=== PATIENT | female | born 1945 | race Caucasian/White ===

== ENCOUNTER 2018-05-28 15:11 | Inpatient (IN) ==
[2018-05-28] MEDS ORDERED: ROCEPHIN VIAL 1 GRAM IVP SCH (16:19)
[2018-05-28] MEDS ORDERED: NS 1000 ML 1,000 ML IV ONE (16:19)
[2018-05-28 17:31] LABS: BASOPHILS % (AUTO) 0.2 % (0.2-1.0); EOSINOPHILS # (AUTO) 0.1 x10^3/uL (0.0-0.2); EOSINOPHILS % (AUTO) 0.4 % (0.9-2.9); HEMATOCRIT 33.6 % (36.0-47.0); HEMOGLOBIN 11.1 g/dL (12.0-16.0); LYMPHOCYTES % (AUTO) 14.5 % (21.0-51.0); MEAN CORPUSCULAR HEMOGLOBIN 29.2 pg (27.0-34.0); MEAN CORPUSCULAR HGB CONC 33.2 g/dL (33.0-35.0); MEAN CORPUSCULAR VOLUME 88.1 fL (80.0-100.0); MEAN PLATELET VOLUME 8.6 fL (7.4-11.0); MONOCYTES # (AUTO) 0.9 x10^3/uL (0.3-0.8); MONOCYTES % (AUTO) 6.1 % (0.0-13.0); NEUTROPHILS % (AUTO) 78.8 % (42.0-75.0); PLATELET COUNT 114 X10^3/uL (150.0-450.0); RED BLOOD COUNT 3.81 X10^6/uL (3.5-5.4); RED CELL DISTRIBUTION WIDTH 15.1 % (11.6-16.5)
[2018-05-28 17:36] LABS: ALANINE AMINOTRANSFERASE 18 Units/L (12-78); ALBUMIN 3.7 g/dL (3.4-5.0); ALKALINE PHOSPHATASE 51 Units/L (46-116); ASPARTATE AMINO TRANSFERASE 15 Units/L (15-37); BLOOD UREA NITROGEN 50 mg/dL (7-18); CALCIUM 9.1 mg/dL (8.5-10.1); CARBON DIOXIDE 32.6 mmol/L (21-32); CHLORIDE 101 mmol/L (98-107); COR NA(FOR HYPERGLY) 141 mmol/L (136-145); CREATININE 1.98 mg/dL (0.55-1.02); MAGNESIUM 1.3 mg/dL (1.7-2.9); SODIUM 140 mmol/L (136-145); TOTAL PROTEIN 7.8 g/dL (6.4-8.2); eGFR NON BLACK RACES 26 (>60)
[2018-05-28 17:48] LABS: ABG BASE EXCESS 6.6 mmol/L (-2.0-2.0)
[2018-05-28 17:50] LABS: ABG HCO3 32.8 mmol/L (22-26)
[2018-05-28 17:51] LABS: ABG ALLEN TEST POS
[2018-05-28] MEDS ORDERED: MAGNESIUM SULFATE 1 GRAM/100 mL PREMIX 1 G/100 ML BAG IV PRN (18:21)
[2018-05-28] MEDS: MAGNESIUM SULFATE 1 GRAM/100 mL PREMIX 1 GM/100 ML BAG IV PRN ×3 (19:04→22:56)
[2018-05-28] MEDS: CIPRO IV 200 MG PREMIX* 200 MG/100 ML BAG IV SCH (21:48)
[2018-05-29] MEDS: MAGNESIUM SULFATE 1 GRAM/100 mL PREMIX 1 GM/100 ML BAG IV PRN (00:15)
[2018-05-29 01:42] LABS: BILIRUBIN,URINE NEGATIVE (NEGATIVE); BLOOD/HEMOGLOBIN,URINE 1+ (NEGATIVE); GLUCOSE, URINE NEGATIVE (NEGATIVE); KETONES,URINE NEGATIVE (NEGATIVE); LEUKOCYTE ESTERASE ,URINE 2+ (NEGATIVE); NITRITES,URINE NEGATIVE (NEGATIVE); PROTEIN,URINE NEGATIVE (NEGATIVE); UROBILINOGEN,URINE NORMAL (NORMAL)
[2018-05-29 02:00] LABS: APPEARANCE,URINE CLEAR (CLEAR); BACTERIA,URINE TRACE /HPF (NEGATIVE); COLOR,URINE YELLOW (YELLOW); SQUAMOUS EPITHELIAL CELL,UR MODERATE /HPF (NEGATIVE)
[2018-05-29 05:51] VITALS: BMI 30.1
[2018-05-29 06:10] LABS: BASOPHILS % (AUTO) 0.2 % (0.2-1.0); EOSINOPHILS # (AUTO) 0.1 x10^3/uL (0.0-0.2); EOSINOPHILS % (AUTO) 0.9 % (0.9-2.9); HEMATOCRIT 28.7 % (36.0-47.0); HEMOGLOBIN 9.5 g/dL (12.0-16.0); LYMPHOCYTES # (AUTO) 1.8 X10^3/uL (1.3-2.9); LYMPHOCYTES % (AUTO) 15.9 % (21.0-51.0); MEAN CORPUSCULAR HEMOGLOBIN 29.2 pg (27.0-34.0); MEAN CORPUSCULAR HGB CONC 33.3 g/dL (33.0-35.0); MEAN CORPUSCULAR VOLUME 87.6 fL (80.0-100.0); MEAN PLATELET VOLUME 8.8 fL (7.4-11.0); MONOCYTES # (AUTO) 0.8 x10^3/uL (0.3-0.8); MONOCYTES % (AUTO) 7.3 % (0.0-13.0); NEUTROPHILS # (AUTO) 8.6 x10^3/uL (2.2-4.8); NEUTROPHILS % (AUTO) 75.7 % (42.0-75.0); PLATELET COUNT 104 X10^3/uL (150.0-450.0); RED BLOOD COUNT 3.27 X10^6/uL (3.5-5.4); RED CELL DISTRIBUTION WIDTH 15.1 % (11.6-16.5); WHITE BLOOD COUNT 11.4 X10^3/uL (3.6-10.0)
[2018-05-29 06:34] LABS: ALBUMIN 3.1 g/dL (3.4-5.0); CARBON DIOXIDE 31.8 mmol/L (21-32); COR CA(FOR HYPOALB) 9.7 mg/dL (8.5-10.1); CREATININE 1.66 mg/dL (0.55-1.02); TOTAL PROTEIN 6.7 g/dL (6.4-8.2)
--- NOTE | 2018-05-29 07:24 | CT ---
CT HEAD WITHOUT CONTRAST CLINICAL HISTORY: 72-year-old female with altered mental status COMPARISON: None. TECHNIQUE: Multiple, non-contrasted axial CT images were obtained from the skull base to the cranial vertex. Coronal and sagittal reformats were performed. FINDINGS: There are no abnormal intra- or extra-axial fluid collections, midline shift, or mass effect. Abdul-white differentiation is normal. Global cortical involutional changes are present that are advanced for the patient's stated age. The ventricular system is enlarged but commensurate with the degree of sulcal prominence. Chronic lacunar infarctions bilateral basal ganglia with chronic punctate infarctions bilateral segundo radiata and centrum semiovale. Severe periventricular and supraventricular white matter hypodensity is present that is nonspecific in appearance, but most likely to represent microvascular ischemic changes. Atherosclerotic vascular calcification is present within the carotid siphons and distal vertebral arteries. Trace mucosal thickening left frontal sinus with significant fluid within the right frontal sinus extending into the right frontal recess. Remaining paranasal sinuses, mastoid air cells and tympanic cavities are clear. IMPRESSION: 1. No definite evidence of an acute intracranial process. If clinical concern persists for acute stroke and it would alter patient management, consider MRI/MRA brain. 2. Significant fluid level right frontal sinus extending into the frontal recess, correlate clinically for acute sinusitis. 3. Severe microvascular white matter ischemic changes, with associated volume loss. Reported By:
--- NOTE | 2018-05-29 07:25 | RAD ---
HISTORY: 72-year-old female with altered mental status. Study: Frontal view of the chest. Comparison: None. Findings: Status post median sternotomy. Right axillary surgical clips. The trachea is midline. The cardiac silhouette is unremarkable. Prominent interstitium and perihilar lung markings without effusion, pneumothorax or large consolidation. Soft tissues are unremarkable. Osseous structures are unremarkable. IMPRESSION: 1. No acute cardiopulmonary disease with findings suggesting COPD. Reported By:
[2018-05-29] MEDS: NS 1000 ML 1,000 ML IV SCH ×3 (07:58→21:41)
[2018-05-29] MEDS: CIPRO IV 200 MG PREMIX* 200 MG/100 ML BAG IV SCH (07:59)
[2018-05-29] MEDS ORDERED: ZOFRAN TAB 4 MG PO PRN (18:04)
[2018-05-29] MEDS ORDERED: PATIENT'S HOME MEDICATION (Ferrous Sulfate [Ferrous Sulfate] 325 MG) PO SCH (18:15)
--- NOTE | 2018-05-29 18:15 | DR.H&P ---
H&P - History & Physical for Day of: H&P Date: 05/28/18 - Chief Complaint Chief Complaint: AMS - History of Present Illness History of Present Illness: 72 WF PATIENT OF [facility] WITH BRONCHITIS FOR SEVERAL WEEKS AND AMS. PT HAS PMH OF HTN, OA, GERD, COPD.NURSING STAFF REPORTS PT HAD DECREASED AWARENESS, INCREASED LETHARGIC. PT ADMITTED FOR TREATMENT OF ACUTE ILNNESS, R/O SEPSIS, UTI. - Past Medical History Past Medical History: Arthritis, Depression, Hypertension - Past Surgical History Surgical History: CABG/Valve Surgery, Mastectomy - Family History Family Medical History: Coronary Artery Disease, Hypertension - Social History Does patient currently use any type of tobacco product: No Have you used tobacco products in the last 12 months: No Type of Tobacco Use: None Does any household member use tobacco: No Alcohol Use: None Drug Use: None - Medications Home Medications: aspirin Allergy (Verified 05/28/18 17:20) codeine Allergy (Verified 05/28/18 17:20) Iodinated Contrast- Oral and IV Dye Allergy (Verified 05/28/18 18:07) Penicillins Allergy (Verified 05/28/18 17:20) Sulfa (Sulfonamide Antibiotics) Allergy (Verified 05/28/18 17:20) CONTINUE taking the following medications acetaminophen 650 mg PO Q6H PRN 05/28/18 [History] alprazolam [Xanax] 0.5 mg PO BID 05/28/18 [History] exemestane 25 mg PO QDAY 05/28/18 [History] ferrous sulfate 325 mg PO DAILY 05/28/18 [History] furosemide 20 mg PO QDAY 05/28/18 [History] gabapentin 300 mg PO QHS 05/28/18 [History] guaifenesin 600 mg PO Q12H 05/28/18 [History] hydrocodone-acetaminophen 1 tab PO Q6H PRN 05/28/18 [History] ipratropium-albuterol 1 vial INHALATION Q6H PRN 05/28/18 [History] levothyroxine 125 mcg PO QDAY 05/28/18 [History] metformin 1,000 mg PO BID 05/28/18 [History] metoprolol tartrate 100 mg PO BID 05/28/18 [History] ondansetron HCl [Zofran] 4 mg PO Q6H PRN 05/28/18 [History] pantoprazole [Protonix] 40 mg PO QDAY 05/28/18 [History] rivaroxaban [Xarelto] 15 mg PO HS 05/28/18 [History] sertraline 150 mg PO HS 05/28/18 [History] simvastatin 80 mg PO QHS 05/28/18 [History] triamterene-hydrochlorothiazid 1 cap PO QDAY 05/28/18 [History] - Review of Systems Constitutional: Weakness Eyes: No Symptoms Reported ENT: No Symptoms Reported Respiratory: Cough, Wheezing Cardiovascular: No Symptoms Reported Gastrointestinal: Nausea Genitourinary: No Symptoms Reported Musculoskeletal: No Symptoms Reported Skin: No Symptoms Reported Neurological: Weakness, Confusion - Physical Exam Vital Signs: Temperature 99.1 F Pulse Rate [Left Brachial] 84 Pulse Rate 74 Respiratory Rate 20 Blood Pressure [Left Arm] 129/58 O2 Sat by Pulse Oximetry 97 Oriented: Normal Eyes: Normal Nose: Discharge Throat: Dry Respiratory: RLL Diminished, LLL Diminished Cardiovascular: Normal : Normal Auscultation: Bowel Sounds: Normal Palpation: Normal Tenderness: Normal Skin: Decreased Turgur Musculoskeletal: Back:Lumbar Psychiatric: Anxiety Affect: Anxious Speech Pattern: Delayed - Assessment/Plan (1) Altered mental status Status: Acute (2) UTI (urinary tract infection) Status: Acute (3) Acute bronchitis Status: Acute - Allergies Allergies/Adverse Reactions: Allergies Allergy/AdvReac Type Severity Reaction Status Date / Time aspirin Allergy Verified 05/28/18 17:20 codeine Allergy Verified 05/28/18 17:20 Iodinated Contrast- Oral and Allergy Verified 05/28/18 18:07 IV Dye Penicillins Allergy Verified 05/28/18 17:20 Sulfa (Sulfonamide Allergy Verified 05/28/18 17:20 Antibiotics)
[2018-05-29] MEDS ORDERED: MUCINEX EXPECTORANT PO SCH (19:00)
[2018-05-29] MEDS: PULMICORT NEB TX 0.5 MG NEB SCH (21:08)
[2018-05-29] MEDS: DUONEB 0.5 MG/3 MG NEB SCH (21:08)
[2018-05-29] MEDS ORDERED: GLUCOPHAGE ONE (21:32)
[2018-05-29] MEDS ORDERED: ZOLOFT PO ONE (21:32)
[2018-05-29] MEDS: ROCEPHIN VIAL 1 GRAM IVP SCH (21:37)
[2018-05-29] MEDS: ZOCOR TAB 40 MG PO SCH (21:38)
[2018-05-29] MEDS: NORCO 10/325 TAB PO PRN (21:38)
[2018-05-29] MEDS: GLUCOPHAGE PO SCH (21:39)
[2018-05-29] MEDS: LOPRESSOR TAB 50 MG PO SCH (21:39)
[2018-05-29] MEDS: ZOLOFT PO SCH (21:40)
[2018-05-29] MEDS: MUCINEX EXPECTORANT PO SCH (21:41)
[2018-05-29] MEDS: XANAX PO SCH (21:41)
[2018-05-29] MEDS: NEURONTIN CAP 300 MG PO SCH (21:41)
[2018-05-29] MEDS: XARELTO PO SCH (21:41)
[2018-05-29] MEDS ORDERED: HEMOCYTE-PLUS PO ONE (21:52)
[2018-05-29] MEDS: LASIX PO SCH (21:58)
[2018-05-29] MEDS ORDERED: HEMOCYTE-PLUS PO SCH (22:00)
[2018-05-30] MEDS: DUONEB 0.5 MG/3 MG NEB SCH ×5 (05:51→21:10)
[2018-05-30] MEDS: DUONEB 0.5 MG/3 MG IN SCH (06:09)
[2018-05-30 06:25] LABS: BASOPHILS % (AUTO) 0.3 % (0.2-1.0); EOSINOPHILS # (AUTO) 0.1 x10^3/uL (0.0-0.2); EOSINOPHILS % (AUTO) 1.7 % (0.9-2.9); HEMOGLOBIN 9.9 g/dL (12.0-16.0); LYMPHOCYTES # (AUTO) 1.2 X10^3/uL (1.3-2.9); LYMPHOCYTES % (AUTO) 15.7 % (21.0-51.0); MEAN CORPUSCULAR HEMOGLOBIN 29.8 pg (27.0-34.0); MEAN CORPUSCULAR HGB CONC 34.1 g/dL (33.0-35.0); MEAN CORPUSCULAR VOLUME 87.4 fL (80.0-100.0); MEAN PLATELET VOLUME 9.1 fL (7.4-11.0); MONOCYTES # (AUTO) 0.6 x10^3/uL (0.3-0.8); MONOCYTES % (AUTO) 7.8 % (0.0-13.0); NEUTROPHILS # (AUTO) 5.7 x10^3/uL (2.2-4.8); NEUTROPHILS % (AUTO) 74.5 % (42.0-75.0); PLATELET COUNT 104 X10^3/uL (150.0-450.0); RED BLOOD COUNT 3.32 X10^6/uL (3.5-5.4); RED CELL DISTRIBUTION WIDTH 15.2 % (11.6-16.5); WHITE BLOOD COUNT 7.6 X10^3/uL (3.6-10.0)
[2018-05-30] MEDS ORDERED: ZOFRAN TAB 4 MG PO PRN (06:51)
[2018-05-30 06:52] LABS: BLOOD UREA NITROGEN 30 mg/dL (7-18); CHLORIDE 103 mmol/L (98-107); SODIUM 142 mmol/L (136-145); eGFR NON BLACK RACES 36 (>60)
[2018-05-30 07:18] LABS: ALANINE AMINOTRANSFERASE 17 Units/L (12-78); ALBUMIN 3.1 g/dL (3.4-5.0); ALKALINE PHOSPHATASE 45 Units/L (46-116); ASPARTATE AMINO TRANSFERASE 16 Units/L (15-37); CALCIUM 8.8 mg/dL (8.5-10.1); CARBON DIOXIDE 29.5 mmol/L (21-32); COR CA(FOR HYPOALB) 9.5 mg/dL (8.5-10.1); MAGNESIUM 1.9 mg/dL (1.7-2.9); TOTAL PROTEIN 7.1 g/dL (6.4-8.2)
[2018-05-30 08:39] LABS: ABG BASE EXCESS 8.7 mmol/L (-2.0-2.0); ABG HCO3 34.1 mmol/L (22-26)
[2018-05-30] MEDS: PULMICORT NEB TX 0.5 MG NEB SCH ×2 (08:55→21:10)
[2018-05-30] MEDS: EXEMESTANE 25 MG PO SCH (09:15)
[2018-05-30] MEDS: GLUCOPHAGE PO SCH (09:16)
[2018-05-30] MEDS: PROTONIX TAB 40 MG PO SCH (09:17)
[2018-05-30] MEDS: HEMOCYTE-PLUS PO SCH (09:17)
[2018-05-30] MEDS: MUCINEX EXPECTORANT PO SCH ×2 (09:17→21:20)
[2018-05-30] MEDS: ROCEPHIN VIAL 1 GRAM IVP SCH (09:17)
[2018-05-30] MEDS: XANAX PO SCH ×2 (09:18→21:20)
[2018-05-30] MEDS: LOPRESSOR TAB 50 MG PO SCH ×2 (09:18→21:21)
[2018-05-30] MEDS: LASIX PO SCH (09:18)
[2018-05-30] MEDS: SYNTHROID 125 mcg TAB PO SCH (09:18)
[2018-05-30] MEDS: NS 1000 ML 1,000 ML IV SCH (14:08)
[2018-05-30] MEDS ORDERED: ZOLOFT PO ONE (20:48)
[2018-05-30] MEDS: NEURONTIN CAP 300 MG PO SCH (21:18)
[2018-05-30] MEDS: ZOCOR TAB 40 MG PO SCH (21:19)
[2018-05-30] MEDS: NORCO 10/325 TAB PO PRN (21:19)
[2018-05-30] MEDS: XARELTO PO SCH (21:20)
[2018-05-30] MEDS: ZOLOFT PO SCH (21:21)
[2018-05-31] MEDS: DUONEB 0.5 MG/3 MG NEB SCH (06:00)
[2018-05-31 06:02] LABS: BASOPHILS % (AUTO) 0.3 % (0.2-1.0); EOSINOPHILS # (AUTO) 0.1 x10^3/uL (0.0-0.2); EOSINOPHILS % (AUTO) 2.2 % (0.9-2.9); HEMATOCRIT 29.1 % (36.0-47.0); HEMOGLOBIN 9.7 g/dL (12.0-16.0); LYMPHOCYTES # (AUTO) 1.7 X10^3/uL (1.3-2.9); LYMPHOCYTES % (AUTO) 27.8 % (21.0-51.0); MEAN CORPUSCULAR HEMOGLOBIN 29.7 pg (27.0-34.0); MEAN CORPUSCULAR HGB CONC 33.3 g/dL (33.0-35.0); MEAN PLATELET VOLUME 8.6 fL (7.4-11.0); MONOCYTES # (AUTO) 0.6 x10^3/uL (0.3-0.8); MONOCYTES % (AUTO) 10.4 % (0.0-13.0); NEUTROPHILS # (AUTO) 3.6 x10^3/uL (2.2-4.8); NEUTROPHILS % (AUTO) 59.3 % (42.0-75.0); PLATELET COUNT 99 X10^3/uL (150.0-450.0); RED BLOOD COUNT 3.26 X10^6/uL (3.5-5.4); WHITE BLOOD COUNT 6.1 X10^3/uL (3.6-10.0)
[2018-05-31] MEDS: NS 1000 ML 1,000 ML IV SCH (06:14)
[2018-05-31 06:45] LABS: ALANINE AMINOTRANSFERASE 14 Units/L (12-78); ALBUMIN 2.9 g/dL (3.4-5.0); ALKALINE PHOSPHATASE 41 Units/L (46-116); ASPARTATE AMINO TRANSFERASE 15 Units/L (15-37); BLOOD UREA NITROGEN 26 mg/dL (7-18); CALCIUM 8.8 mg/dL (8.5-10.1); CHLORIDE 106 mmol/L (98-107); COR CA(FOR HYPOALB) 9.7 mg/dL (8.5-10.1); CREATININE 1.35 mg/dL (0.55-1.02); SODIUM 143 mmol/L (136-145); TOTAL PROTEIN 6.8 g/dL (6.4-8.2); eGFR NON BLACK RACES 41 (>60)
[2018-05-31] MEDS: PULMICORT NEB TX 0.5 MG NEB SCH (08:37)
[2018-05-31] MEDS: SYNTHROID 125 mcg TAB PO SCH (09:02)
[2018-05-31] MEDS: PROTONIX TAB 40 MG PO SCH (09:02)
[2018-05-31] MEDS: XANAX PO SCH (09:02)
[2018-05-31] MEDS: MUCINEX EXPECTORANT PO SCH (09:02)
[2018-05-31] MEDS: HEMOCYTE-PLUS PO SCH (09:02)
[2018-05-31] MEDS: LASIX PO SCH (09:03)
[2018-05-31] MEDS: EXEMESTANE 25 MG PO SCH (09:03)
[2018-05-31] MEDS: LOPRESSOR TAB 50 MG PO SCH (09:03)
[2018-05-31] MEDS: ROCEPHIN VIAL 1 GRAM IVP SCH (09:03)
[2018-05-31 12:18] VITALS: BP 127/58
== END 2018-05-31 15:00 | DRG 948 ==
LOC: MED/SURG → OBSVTOIN 16:38
PROVIDERS: ADMIT Internal Medicine; ATTEND Internal Medicine
DX: I25.10 Atherosclerotic heart disease of native coronary artery without angina pectoris; N39.0 Urinary tract infection, site not specified; R09.02 Hypoxemia; Z99.81 Dependence on supplemental oxygen; J44.9 Chronic obstructive pulmonary disease, unspecified; R41.82 Altered mental status, unspecified; N28.9 Disorder of kidney and ureter, unspecified; K21.9 Gastro-esophageal reflux disease without esophagitis; I12.9 Hypertensive chronic kidney disease with stage 1 through stage 4 chronic kidney disease, or unspecified chronic kidney disease; J20.8 Acute bronchitis due to other specified organisms; Z87.898 Personal history of other specified conditions; E11.65 Type 2 diabetes mellitus with hyperglycemia; D72.828 Other elevated white blood cell count
CPT/HCPCS: 36415; 36600; 70450; 71010; 71045; 80053; 81001; 82803; 83735; 85025; 87040; 87070; 87086; 87205; 93005; 94640; 94760; 97116; 97162; 97165; 97530; A4222; J0696; J0744; J3475; J7030; J7620; J7626

== ENCOUNTER 2018-07-23 13:22 | Inpatient (IN) ==
[2018-07-23 15:03] LABS: BASOPHILS % (AUTO) 0.2 % (0.2-1.0); EOSINOPHILS % (AUTO) 0.1 % (0.9-2.9); HEMATOCRIT 30.2 % (36.0-47.0); HEMOGLOBIN 9.9 g/dL (12.0-16.0); LYMPHOCYTES # (AUTO) 1.6 X10^3/uL (1.3-2.9); MEAN CORPUSCULAR HEMOGLOBIN 29.6 pg (27.0-34.0); MEAN CORPUSCULAR HGB CONC 32.7 g/dL (33.0-35.0); MEAN CORPUSCULAR VOLUME 90.6 fL (80.0-100.0); MEAN PLATELET VOLUME 8.6 fL (7.4-11.0); MONOCYTES # (AUTO) 0.8 x10^3/uL (0.3-0.8); MONOCYTES % (AUTO) 5.1 % (0.0-13.0); NEUTROPHILS # (AUTO) 13.8 x10^3/uL (2.2-4.8); NEUTROPHILS % (AUTO) 84.6 % (42.0-75.0); PLATELET COUNT 131 X10^3/uL (150.0-450.0); RED BLOOD COUNT 3.34 X10^6/uL (3.5-5.4); WHITE BLOOD COUNT 16.3 X10^3/uL (3.6-10.0)
[2018-07-23 15:18] LABS: BLOOD UREA NITROGEN 54 mg/dL (7-18); CALCIUM 9.4 mg/dL (8.5-10.1); CARBON DIOXIDE 29.7 mmol/L (21-32); CHLORIDE 101 mmol/L (98-107); COR NA(FOR HYPERGLY) 142 mmol/L (136-145); CREATININE 2.24 mg/dL (0.55-1.02); SODIUM 141 mmol/L (136-145); TROPONIN I < 0.02 ng/mL (0-1.5); eGFR NON BLACK RACES 23 (>60)
[2018-07-23 15:22] LABS: ALANINE AMINOTRANSFERASE 13 Units/L (12-78); ALBUMIN 3.2 g/dL (3.4-5.0); ALKALINE PHOSPHATASE 54 Units/L (46-116); ASPARTATE AMINO TRANSFERASE 16 Units/L (15-37); CKMB % 0.7 % (<4); CREATINE KINASE 163 Units/L (26-192); CREATINE KINASE MB 1.1 ng/mL (0-4.0); TOTAL PROTEIN 8.2 g/dL (6.4-8.2)
--- NOTE | 2018-07-23 15:52 | RAD ---
Examination: AP chest History: SOB Comparison 05/28/2018 Findings: Continued normal heart size with surgical changes of valve replacement. The right lung is clear of active disease. There is now noted extensive diffuse infiltrate throughout the entire left lung. No discrete mass is seen. There is no evidence for pneumothorax or large pleural effusion. Impression: Interval development of extensive left pulmonary infiltrate consistent with pneumonia. Reported By:
[2018-07-23 16:03] LABS: BILIRUBIN,URINE NEGATIVE (NEGATIVE); BLOOD/HEMOGLOBIN,URINE 2+ (NEGATIVE); GLUCOSE, URINE NEGATIVE (NEGATIVE); KETONES,URINE NEGATIVE (NEGATIVE); LEUKOCYTE ESTERASE ,URINE 1+ (NEGATIVE); NITRITES,URINE NEGATIVE (NEGATIVE); PROTEIN,URINE 1+ (NEGATIVE); UROBILINOGEN,URINE NORMAL (NORMAL)
[2018-07-23] MEDS ORDERED: NS 1000 ML 1,000 ML IV ONE (16:05)
[2018-07-23 16:08] LABS: APPEARANCE,URINE CLEAR (CLEAR); COLOR,URINE YELLOW (YELLOW)
[2018-07-23 16:15] LABS: AMORPHOUS SEDIMENT,UR TRACE /HPF (NEGATIVE); BACTERIA,URINE NEGATIVE /HPF (NEGATIVE); HYALINE CASTS, URINE FEW /LPF (NEGATIVE); RBC,URINE 0-2 /HPF (NONE SEEN); SQUAMOUS EPITHELIAL CELL,UR FEW /HPF (NEGATIVE)
[2018-07-23] MEDS ORDERED: NS 1000 ML 1,000 ML ONE (16:23)
[2018-07-23 17:08] LABS: ABG BASE EXCESS 7.4 mmol/L (-2.0-2.0)
[2018-07-23 17:09] VITALS: BMI 24.0
[2018-07-23] MEDS ORDERED: SALINE 3% 15 ML NEB TX NEB ONE (17:15)
[2018-07-23] MEDS ORDERED: NS 250 ML IV 250 ML ONE (17:18)
[2018-07-23] MEDS ORDERED: ZITHROMAX INJ 500 MG VIAL ONE (17:18)
[2018-07-23] MEDS: ZITHROMAX INJ 500 MG VIAL 500 MG in NS 250 ML IV 250 ML IV SCH (17:34)
[2018-07-23] MEDS: Atrovent NEB TX 0.02% NEB SCH (17:42)
[2018-07-23] MEDS: XOPENEX 1.25 MG/3 ML NEBULE NEB SCH (17:42)
[2018-07-23] MEDS: LEVAQUIN PREMIX IV 500 MG 500 MG/100 ML BAG IV SCH (20:00)
[2018-07-23] MEDS: SNACK - Diabetic Appropriate PO SCH (20:01)
[2018-07-23] MEDS ORDERED: LEVAQUIN PREMIX IV 500 MG 500 MG/100 ML BAG IV SCH (21:00)
[2018-07-23] MEDS: PULMICORT NEB TX 0.5 MG NEB SCH (21:43)
[2018-07-23] MEDS: BROVANA IN SCH (21:51)
[2018-07-24] MEDS ORDERED: ROBITUSSIN DM PO PRN (00:03)
[2018-07-24] MEDS ORDERED: ROBITUSSIN DM ONE (00:04)
[2018-07-24] MEDS: Atrovent NEB TX 0.02% NEB SCH ×4 (01:04→17:07)
[2018-07-24] MEDS: XOPENEX 1.25 MG/3 ML NEBULE NEB SCH ×4 (01:04→17:07)
[2018-07-24] MEDS: NS 1000 ML 1,000 ML IV ONE ×2 (03:29→21:06)
[2018-07-24 05:24] LABS: BASOPHILS # (AUTO) 0.2 X10^3/uL (0.0-0.1); BASOPHILS % (AUTO) 2.2 % (0.2-1.0); EOSINOPHILS % (AUTO) 0.4 % (0.9-2.9); HEMATOCRIT 27.4 % (36.0-47.0); HEMOGLOBIN 9.1 g/dL (12.0-16.0); LYMPHOCYTES # (AUTO) 0.8 X10^3/uL (1.3-2.9); LYMPHOCYTES % (AUTO) 7.3 % (21.0-51.0); MEAN CORPUSCULAR HGB CONC 33.2 g/dL (33.0-35.0); MEAN CORPUSCULAR VOLUME 90.2 fL (80.0-100.0); MEAN PLATELET VOLUME 9.2 fL (7.4-11.0); MONOCYTES # (AUTO) 0.4 x10^3/uL (0.3-0.8); NEUTROPHILS # (AUTO) 9.5 x10^3/uL (2.2-4.8); NEUTROPHILS % (AUTO) 86.1 % (42.0-75.0); PLATELET COUNT 118 X10^3/uL (150.0-450.0); RED BLOOD COUNT 3.03 X10^6/uL (3.5-5.4); RED CELL DISTRIBUTION WIDTH 14.8 % (11.6-16.5); WHITE BLOOD COUNT 11.1 X10^3/uL (3.6-10.0)
[2018-07-24 05:36] LABS: ALBUMIN 2.7 g/dL (3.4-5.0); CALCIUM 8.8 mg/dL (8.5-10.1); COR CA(FOR HYPOALB) 9.8 mg/dL (8.5-10.1); CREATININE 1.91 mg/dL (0.55-1.02); TOTAL PROTEIN 7.1 g/dL (6.4-8.2)
[2018-07-24 06:34] LABS: PLATELET MORPHOLOGY COMMENT NORMAL (NORMAL)
[2018-07-24] MEDS: BROVANA IN SCH ×2 (09:35→20:52)
[2018-07-24] MEDS: PULMICORT NEB TX 0.5 MG NEB SCH ×2 (09:44→20:17)
[2018-07-24] MEDS: XOPENEX 1.25 MG/3 ML NEBULE NEB PRN ×2 (09:44→20:16)
[2018-07-24] MEDS: ZITHROMAX INJ 500 MG VIAL 500 MG in NS 250 ML IV 250 ML IV SCH (10:00)
[2018-07-24] MEDS: LOPRESSOR TAB 25 MG PO SCH ×2 (11:11→21:16)
--- NOTE | 2018-07-24 13:04 | DR.H&P ---
H&P - History & Physical for Day of: H&P Date: 07/23/18 - Chief Complaint Chief Complaint: WEAKNESS, LOW BLOOD PRESSURE, PNEUMONIA - History of Present Illness History of Present Illness: 73 WF ADMITTED ON 07/23 WITH HYPOTENSION, DEHYDRATION, PNEUMONIA. PT ADMITTED TO ICU FOR CONTINUOUS CARDIAC MONITORING, IV HYDRATION, RESP THERAPY. PT HAS PMH AFIB, COPD, OA, HTN, RESIDENTIAL ANTICOAGULANT THERAPY. - Past Medical History Past Medical History: Arthritis, Depression, Hypertension - Past Surgical History Surgical History: CABG/Valve Surgery, Mastectomy - Family History Family Medical History: Coronary Artery Disease, Hypertension - Social History Does patient currently use any type of tobacco product: No Have you used tobacco products in the last 12 months: No Type of Tobacco Use: None Alcohol Use: None Drug Use: None - Medications Home Medications: aspirin Allergy (Verified 05/28/18 17:20) codeine Allergy (Verified 05/28/18 17:20) Iodinated Contrast- Oral and IV Dye Allergy (Verified 05/28/18 18:07) Penicillins Allergy (Verified 05/28/18 17:20) Sulfa (Sulfonamide Antibiotics) Allergy (Verified 05/28/18 17:20) CONTINUE taking the following medications Lactobacillus acidophilus [Acidophilus] 140 mg PO BID 07/23/18 [History] - Review of Systems Constitutional: Weakness Eyes: No Symptoms Reported ENT: No Symptoms Reported Respiratory: Cough, Shortness of Breath Cardiovascular: Palpitations Gastrointestinal: No Symptoms Reported Genitourinary: No Symptoms Reported Musculoskeletal: No Symptoms Reported Skin: No Symptoms Reported Neurological: Weakness - Physical Exam Vital Signs: Temperature 99.5 F Pulse Rate [Apical] 120 Pulse Rate 126 Respiratory Rate 23 Blood Pressure [Left Arm] 99/51 Blood Pressure 104/59 O2 Sat by Pulse Oximetry 96 Oriented: Person Eyes: Normal Ear: Normal Nose: Normal Throat: Normal Respiratory: RLL Diminished, LLL Diminished Cardiovascular: Tachycardia, Edema : Normal Auscultation: Bowel Sounds: Normal Palpation: Normal Tenderness: Normal Skin: Decreased Turgur Musculoskeletal: Right, Left, Leg, Motor Deficit Psychiatric: Anxiety Affect: Anxious Speech Pattern: Clear, Appropriate - Assessment/Plan (1) Altered mental status Status: Acute Plan: ADMIT, BP CONTROL. IV HYDRATION. ADMISSION LABS, BLOOD AND URINE CULTURE. IV ATBX, STRICT I & OS, RESP THERAPY. CXR ON ADMISSION, VERIFY HOME MEDICATION (2) Pneumonia Status: Acute (3) Acute renal failure Status: Acute (4) Acute bronchitis Status: Acute (5) UTI (urinary tract infection) Status: Acute - Allergies Allergies/Adverse Reactions: Allergies Allergy/AdvReac Type Severity Reaction Status Date / Time aspirin Allergy Verified 05/28/18 17:20 codeine Allergy Verified 05/28/18 17:20 Iodinated Contrast- Oral and Allergy Verified 05/28/18 18:07 IV Dye Penicillins Allergy Verified 05/28/18 17:20 Sulfa (Sulfonamide Allergy Verified 05/28/18 17:20 Antibiotics)
--- NOTE | 2018-07-24 13:11 | PCM.PROG ---
Progress Note - Progress Note for Day of Date of Exam: 07/24/18 - Subjective Subjective: 73 WF ADMITTED ON 07/23 WITH PNEUMONIA, UTI, ACUTE RENAL FAILURE, DEHYDRATION. PT CURRENTLY ON IV ATBX, GENTLE IV HYDRATION. IMPROVED RENAL FUNCTION, BUN 46, CREAT 1.91 THIS AM. PT HAS HX AFIB, WITH RATE 120'S THIS AM, ASYMPTOMATIC AND RECENTLY HAD DUO NEB. RESTARTED PT'S HOME METOPROLOL. WILL CONTINUE CARDIAC MONITORING. PT IS ALERT AND ORIENTED, CALM THIS AM. - Past Medical Family Social History Past Med/Fam/Surg Hx: No changes since H&P Allergies: Allergies aspirin Allergy (Verified 05/28/18 17:20) codeine Allergy (Verified 05/28/18 17:20) Iodinated Contrast- Oral and IV Dye Allergy (Verified 05/28/18 18:07) Penicillins Allergy (Verified 05/28/18 17:20) Sulfa (Sulfonamide Antibiotics) Allergy (Verified 05/28/18 17:20) - Review of Systems ROS: No change since H&P - Vital Signs and I&O's Vital Signs: Temperature 99.5 F Pulse Rate [Apical] 120 Pulse Rate 126 Respiratory Rate 23 Blood Pressure [Left Arm] 99/51 Blood Pressure 104/59 O2 Sat by Pulse Oximetry 96 Intake and Output: Intake & Output 07/22/18 07/23/18 07/24/18 07/25/18 11:59 11:59 11:59 11:59 Intake Total 1795 / 1795 Output Total 900 / 900 Balance 895 / 895 - Physical Exam Oriented: Person Eyes: Normal Ear: Normal Nose: Normal Throat: Normal Respiratory: Diminished, Wheezes, Rhonchi Cardiovascular: Tachycardia, Edema : Normal Auscultation: Bowel Sounds: Normal Tenderness: Normal Skin: Decreased Turgur Musculoskeletal: Right, Left, Leg, Motor Deficit Psychiatric: Anxiety Affect: Anxious Speech Pattern: Clear, Appropriate - Laboratory and Diagnostics Result Diagrams: 07/24/18 04:02 07/24/18 04:02 Labs: 07/24/18 00:29 Sputum - Expectorated Sputum - Final Laboratory WBC 11.1 X10^3/uL (3.6-10.0) H 07/24/18 04:02 RBC 3.03 X10^6/uL (3.5-5.4) L 07/24/18 04:02 Hgb 9.1 g/dL (12.0-16.0) L 07/24/18 04:02 Hct 27.4 % (36.0-47.0) L 07/24/18 04:02 MCV 90.2 fL (80.0-100.0) 07/24/18 04:02 MCH 30.0 pg (27.0-34.0) 07/24/18 04:02 MCHC 33.2 g/dL (33.0-35.0) 07/24/18 04:02 RDW 14.8 % (11.6-16.5) 07/24/18 04:02 Plt Count 118 X10^3/uL (150.0-450.0) L 07/24/18 04:02 Plt Count Comment Decreased (ADEQUATE) A 07/24/18 04:02 MPV 9.2 fL (7.4-11.0) 07/24/18 04:02 Neut % (Auto) 86.1 % (42.0-75.0) H 07/24/18 04:02 Lymph % (Auto) 7.3 % (21.0-51.0) L 07/24/18 04:02 Jones % (Auto) 4.0 % (0.0-13.0) 07/24/18 04:02 Eos % (Auto) 0.4 % (0.9-2.9) L 07/24/18 04:02 Baso % (Auto) 2.2 % (0.2-1.0) H 07/24/18 04:02 Neut # (Auto) 9.5 x10^3/uL (2.2-4.8) H 07/24/18 04:02 Lymph # (Auto) 0.8 X10^3/uL (1.3-2.9) L 07/24/18 04:02 Jones # (Auto) 0.4 x10^3/uL (0.3-0.8) 07/24/18 04:02 Eos # (Auto) 0.0 x10^3/uL (0.0-0.2) 07/24/18 04:02 Baso # (Auto) 0.2 X10^3/uL (0.0-0.1) H 07/24/18 04:02 Absolute Nucleated RBC 0.0 /100WBC 07/24/18 04:02 Total Counted 100 07/24/18 04:02 Neutrophils % (Manual) 82 % (39-76) H 07/24/18 04:02 Lymphocytes % (Manual) 13 % (13-43) 07/24/18 04:02 Monocytes % (Manual) 5 % (4-9) 07/24/18 04:02 Plt Morphology Comment Normal (NORMAL) 07/24/18 04:02 RBC Morphology Normal (NORMAL) 07/24/18 04:02 Sample Site Left brachial 07/23/18 17:02 ABG pH 7.470 (7.35-7.45) H 07/23/18 17:02 ABG pCO2 44.0 mmHg (35.0-45.0) 07/23/18 17:02 ABG pO2 53.0 mmHg (80.0-100.0) L 07/23/18 17:02 ABG HCO3 32.0 mmol/L (22-26) H* 07/23/18 17:02 ABG O2 Saturation 89.0 % (90-100) L 07/23/18 17:02 ABG Base Excess 7.4 mmol/L (-2.0-2.0) H 07/23/18 17:02 Ronaldo Test Na 07/23/18 17:02 A-a Gradient 42.0 mmHg 07/23/18 17:02 FiO2 21.0 07/23/18 17:02 Blood Gas Comments Jakob well aw 07/23/18 17:02 Sodium 140 mmol/L (136-145) 07/24/18 04:02 Corrected Sodium 141 mmol/L (136-145) 07/24/18 04:02 Potassium 3.8 mmol/L (3.5-5.1) 07/24/18 04:02 Chloride 101 mmol/L (98-107) 07/24/18 04:02 Carbon Dioxide 28.0 mmol/L (21-32) 07/24/18 04:02 BUN 46 mg/dL (7-18) H 07/24/18 04:02 Creatinine 1.91 mg/dL (0.55-1.02) H 07/24/18 04:02 Est GFR (MDRD) Af Amer 33 (>60) L 07/24/18 04:02 Est GFR (MDRD) Non-Af 27 (>60) L 07/24/18 04:02 Glucose 143 mg/dL (65-99) H 07/24/18 04:02 POC Glucose (mg/dL) 135 mg/dL (65-99) H 07/24/18 11:46 Lactic Acid 1.4 mmol/L (0.4-2.0) 07/23/18 20:42 Calcium 8.8 mg/dL (8.5-10.1) 07/24/18 04:02 Corrected Calcium 9.8 mg/dL (8.5-10.1) 07/24/18 04:02 Magnesium 1.2 mg/dL (1.7-2.9) L 07/24/18 04:02 Total Bilirubin 0.30 mg/dL (0.2-1.0) 07/24/18 04:02 AST 18 Units/L (15-37) 07/24/18 04:02 ALT 11 Units/L (12-78) L 07/24/18 04:02 Alkaline Phosphatase 45 Units/L (46-116) L 07/24/18 04:02 Creatine Kinase 163 Units/L (26-192) 07/23/18 14:35 CK-MB (CK-2) 1.1 ng/mL (0-4.0) 07/23/18 14:35 CK/CKMB % Calc 0.7 % (<4) 07/23/18 14:35 Troponin I < 0.02 ng/mL (0-1.5) 07/23/18 14:35 Total Protein 7.1 g/dL (6.4-8.2) 07/24/18 04:02 Albumin 2.7 g/dL (3.4-5.0) L 07/24/18 04:02 Globulin 4.4 g/dL (2.5-4.5) 07/24/18 04:02 Albumin/Globulin Ratio 0.6 Ratio (1.1-2.1) L 07/24/18 04:02 Specimen Type Catherized urine 07/23/18 15:59 Urine Color Yellow (YELLOW) 07/23/18 15:59 Urine Appearance Clear (CLEAR) 07/23/18 15:59 Urine pH 5.0 (5.0 - 8.0) 07/23/18 15:59 Ur Specific [place] 1.030 (1.000-1.030) 07/23/18 15:59 Urine Protein 1+ (NEGATIVE) 07/23/18 15:59 Urine Glucose (UA) Negative (NEGATIVE) 07/23/18 15:59 Urine Ketones Negative (NEGATIVE) 07/23/18 15:59 Urine Occult Blood 2+ (NEGATIVE) 07/23/18 15:59 Urine Nitrite Negative (NEGATIVE) 07/23/18 15:59 Urine Bilirubin Negative (NEGATIVE) 07/23/18 15:59 Urine Urobilinogen Normal (NORMAL) 07/23/18 15:59 Ur Leukocyte Esterase 1+ (NEGATIVE) 07/23/18 15:59 Urine RBC 0-2 /HPF (NONE SEEN) 07/23/18 15:59 Urine WBC None seen /HPF (NONE SEEN) 07/23/18 15:59 Ur Squamous Epith Cells Few /HPF (NEGATIVE) 07/23/18 15:59 Amorphous Sediment Trace /HPF (NEGATIVE) 07/23/18 15:59 Urine Bacteria Negative /HPF (NEGATIVE) 07/23/18 15:59 Hyaline Casts Few /LPF (NEGATIVE) 07/23/18 15:59 Ur Culture Indicated? No/not indicated 07/23/18 15:59 - Plan (1) Pneumonia Status: Acute Plan: BP CONTROL, RATE CONTROL. IV HYDRATION. AM LABS, BLOOD AND URINE CULTURE. IV ATBX, STRICT I & OS, RESP THERAPY. CXR ON ADMISSION, VERIFIED AND RESUMED HOME MEDICATION (2) Acute renal failure Status: Acute (3) Acute bronchitis Status: Acute (4) UTI (urinary tract infection) Status: Acute
[2018-07-24] MEDS ORDERED: MICRO K EXTEN CAP 10 MEQ PO PRN (19:00)
[2018-07-24] MEDS ORDERED: POTASSIUM CHL 40 MEQ/NS 0.45% 500 ML IV PRN (19:00)
[2018-07-24] MEDS ORDERED: K-RIDER 10 MEQ/NS 100 ML 10 MEQ/100 ML BAG IV PRN (19:00)
[2018-07-24] MEDS ORDERED: POTASSIUM CHLORIDE LIQ 20 MEQ UDC PO PRN (19:00)
[2018-07-24] MEDS ORDERED: K-DUR TAB 20 MEQ PO PRN (19:00)
[2018-07-24] MEDS ORDERED: POTASSIUM CHL 60 MEQ/NS 0.45% 500 ML IV PRN (19:00)
[2018-07-24] MEDS ORDERED: KLOR-CON PO PRN (19:00)
[2018-07-24] MEDS ORDERED: XANAX PO PRN (19:12)
[2018-07-24] MEDS: SNACK - Diabetic Appropriate PO SCH (21:05)
[2018-07-24] MEDS: MAGNESIUM SULFATE 1 GRAM/100 mL PREMIX 1 GM/100 ML BAG IV PRN ×2 (21:13→23:18)
[2018-07-24] MEDS: XARELTO PO SCH (21:16)
[2018-07-25] MEDS: Atrovent NEB TX 0.02% NEB SCH ×5 (00:56→19:09)
[2018-07-25] MEDS: XOPENEX 1.25 MG/3 ML NEBULE NEB SCH ×5 (00:56→19:09)
[2018-07-25] MEDS: MAGNESIUM SULFATE 1 GRAM/100 mL PREMIX 1 GM/100 ML BAG IV PRN ×2 (01:11→03:45)
[2018-07-25] MEDS ORDERED: NS 1000 ML 1,000 ML ONE (04:23)
[2018-07-25] MEDS ORDERED: NS 1000 ML 1,000 ML IV ONE (04:27)
[2018-07-25 05:31] LABS: BASOPHILS % (AUTO) 0.2 % (0.2-1.0); EOSINOPHILS # (AUTO) 0.1 x10^3/uL (0.0-0.2); EOSINOPHILS % (AUTO) 0.7 % (0.9-2.9); HEMATOCRIT 26.3 % (36.0-47.0); HEMOGLOBIN 8.8 g/dL (12.0-16.0); LYMPHOCYTES % (AUTO) 11.5 % (21.0-51.0); MEAN CORPUSCULAR HEMOGLOBIN 30.4 pg (27.0-34.0); MEAN CORPUSCULAR HGB CONC 33.6 g/dL (33.0-35.0); MEAN CORPUSCULAR VOLUME 90.4 fL (80.0-100.0); MEAN PLATELET VOLUME 8.3 fL (7.4-11.0); MONOCYTES # (AUTO) 0.7 x10^3/uL (0.3-0.8); MONOCYTES % (AUTO) 7.4 % (0.0-13.0); NEUTROPHILS # (AUTO) 7.1 x10^3/uL (2.2-4.8); NEUTROPHILS % (AUTO) 80.2 % (42.0-75.0); PLATELET COUNT 140 X10^3/uL (150.0-450.0); RED BLOOD COUNT 2.91 X10^6/uL (3.5-5.4); WHITE BLOOD COUNT 8.8 X10^3/uL (3.6-10.0)
[2018-07-25 05:44] LABS: ALBUMIN 2.8 g/dL (3.4-5.0); CALCIUM 8.7 mg/dL (8.5-10.1); CARBON DIOXIDE 27.3 mmol/L (21-32); COR CA(FOR HYPOALB) 9.7 mg/dL (8.5-10.1); CREATININE 1.77 mg/dL (0.55-1.02); MAGNESIUM 2.7 mg/dL (1.7-2.9); TOTAL PROTEIN 7.3 g/dL (6.4-8.2)
[2018-07-25] MEDS: BROVANA IN SCH ×2 (08:00→20:26)
[2018-07-25] MEDS: PULMICORT NEB TX 0.5 MG NEB SCH ×2 (08:01→20:45)
[2018-07-25] MEDS: ZITHROMAX INJ 500 MG VIAL 500 MG in NS 250 ML IV 250 ML IV SCH (08:53)
[2018-07-25] MEDS: LOPRESSOR TAB 25 MG PO SCH (08:53)
[2018-07-25] MEDS: MILK OF MAGNESIA PO SCH ×2 (11:55→21:18)
[2018-07-25] MEDS ORDERED: LOPRESSOR TAB 25 MG PO NR (13:00)
--- NOTE | 2018-07-25 14:18 | PCM.PROG ---
Progress Note - Progress Note for Day of Date of Exam: 07/25/18 - Subjective Subjective: 73 WF ADMITTED ON 07/23 WITH PNEUMONIA, UTI, ACUTE RENAL FAILURE, DEHYDRATION. PT CURRENTLY ON IV ATBX, GENTLE IV HYDRATION. IMPROVED RENAL FUNCTION, BUN 31, CREAT 1.77 THIS AM. PT HAS HX AFIB, RESTARTED PT'S HOME METOPROLOL WITH RATE 100-105 THIS AM. WILL CONTINUE CARDIAC MONITORING. PT IS ALERT AND ORIENTED, CALM THIS AM. CT SCAN OF CHEST ORDERED THIS AM. - Past Medical Family Social History Past Med/Fam/Surg Hx: No changes since H&P Allergies: Allergies aspirin Allergy (Verified 05/28/18 17:20) codeine Allergy (Verified 05/28/18 17:20) Iodinated Contrast- Oral and IV Dye Allergy (Verified 05/28/18 18:07) Penicillins Allergy (Verified 05/28/18 17:20) Sulfa (Sulfonamide Antibiotics) Allergy (Verified 05/28/18 17:20) - Review of Systems ROS: No change since H&P - Vital Signs and I&O's Vital Signs: Temperature 99.0 F Pulse Rate [Apical] 120 Pulse Rate 100 Respiratory Rate 22 Blood Pressure [Left Arm] 99/51 Blood Pressure 117/57 O2 Sat by Pulse Oximetry 100 Intake and Output: Intake & Output 07/23/18 07/24/18 07/25/18 07/26/18 11:59 11:59 11:59 11:59 Intake Total 1795 / 1795 2476 / 2476 Output Total 900 / 900 1500 / 1500 Balance 895 / 895 976 / 976 - Physical Exam Oriented: Person Eyes: Normal Ear: Normal Nose: Normal Throat: Normal Respiratory: Diminished, Wheezes, Rhonchi Cardiovascular: Tachycardia, Edema : Normal Auscultation: Bowel Sounds: Normal Tenderness: Normal Skin: Decreased Turgur Musculoskeletal: Right, Left, Leg, Motor Deficit Psychiatric: Anxiety Affect: Anxious Speech Pattern: Clear, Appropriate - Laboratory and Diagnostics Result Diagrams: 07/25/18 05:23 07/25/18 05:23 Labs: 07/23/18 14:29 Blood Blood Culture - Preliminary 07/23/18 14:35 Blood Blood Culture - Preliminary 07/24/18 17:00 Urine,Clean Catch Urine Culture - Preliminary 07/24/18 00:29 Sputum - Expectorated Sputum Sputum Culture - Preliminary 07/24/18 00:29 Sputum - Expectorated Sputum - Final Laboratory WBC 8.8 X10^3/uL (3.6-10.0) 07/25/18 05:23 RBC 2.91 X10^6/uL (3.5-5.4) L 07/25/18 05:23 Hgb 8.8 g/dL (12.0-16.0) L 07/25/18 05:23 Hct 26.3 % (36.0-47.0) L 07/25/18 05:23 MCV 90.4 fL (80.0-100.0) 07/25/18 05:23 MCH 30.4 pg (27.0-34.0) 07/25/18 05:23 MCHC 33.6 g/dL (33.0-35.0) 07/25/18 05:23 RDW 15.0 % (11.6-16.5) 07/25/18 05:23 Plt Count 140 X10^3/uL (150.0-450.0) L 07/25/18 05:23 Plt Count Comment Decreased (ADEQUATE) A 07/24/18 04:02 MPV 8.3 fL (7.4-11.0) 07/25/18 05:23 Neut % (Auto) 80.2 % (42.0-75.0) H 07/25/18 05:23 Lymph % (Auto) 11.5 % (21.0-51.0) L 07/25/18 05:23 [place] % (Auto) 7.4 % (0.0-13.0) 07/25/18 05:23 Eos % (Auto) 0.7 % (0.9-2.9) L 07/25/18 05:23 Baso % (Auto) 0.2 % (0.2-1.0) 07/25/18 05:23 Neut # (Auto) 7.1 x10^3/uL (2.2-4.8) H 07/25/18 05:23 Lymph # (Auto) 1.0 X10^3/uL (1.3-2.9) L 07/25/18 05:23 [place] # (Auto) 0.7 x10^3/uL (0.3-0.8) 07/25/18 05:23 Eos # (Auto) 0.1 x10^3/uL (0.0-0.2) 07/25/18 05:23 Baso # (Auto) 0.0 X10^3/uL (0.0-0.1) 07/25/18 05:23 Absolute Nucleated RBC 0.0 /100WBC 07/25/18 05:23 Total Counted 100 07/24/18 04:02 Neutrophils % (Manual) 82 % (39-76) H 07/24/18 04:02 Lymphocytes % (Manual) 13 % (13-43) 07/24/18 04:02 Monocytes % (Manual) 5 % (4-9) 07/24/18 04:02 Plt Morphology Comment Normal (NORMAL) 07/24/18 04:02 RBC Morphology Normal (NORMAL) 07/24/18 04:02 Sample Site Left brachial 07/23/18 17:02 ABG pH 7.470 (7.35-7.45) H 07/23/18 17:02 ABG pCO2 44.0 mmHg (35.0-45.0) 07/23/18 17:02 ABG pO2 53.0 mmHg (80.0-100.0) L 07/23/18 17:02 ABG HCO3 32.0 mmol/L (22-26) H* 07/23/18 17:02 ABG O2 Saturation 89.0 % (90-100) L 07/23/18 17:02 ABG Base Excess 7.4 mmol/L (-2.0-2.0) H 07/23/18 17:02 Ronaldo Test Na 07/23/18 17:02 A-a Gradient 42.0 mmHg 07/23/18 17:02 FiO2 21.0 07/23/18 17:02 Blood Gas Comments Jakob well aw 07/23/18 17:02 Sodium 139 mmol/L (136-145) 07/25/18 05:23 Corrected Sodium 140 mmol/L (136-145) 07/25/18 05:23 Potassium 3.6 mmol/L (3.5-5.1) 07/25/18 05:23 Chloride 101 mmol/L (98-107) 07/25/18 05:23 Carbon Dioxide 27.3 mmol/L (21-32) 07/25/18 05:23 BUN 31 mg/dL (7-18) H 07/25/18 05:23 Creatinine 1.77 mg/dL (0.55-1.02) H 07/25/18 05:23 Est GFR (MDRD) Af Amer 36 (>60) L 07/25/18 05:23 Est GFR (MDRD) Non-Af 30 (>60) L 07/25/18 05:23 Glucose 156 mg/dL (65-99) H 07/25/18 05:23 POC Glucose (mg/dL) 151 mg/dL (65-99) H 07/25/18 11:26 Lactic Acid 1.4 mmol/L (0.4-2.0) 07/23/18 20:42 Calcium 8.7 mg/dL (8.5-10.1) 07/25/18 05:23 Corrected Calcium 9.7 mg/dL (8.5-10.1) 07/25/18 05:23 Magnesium 2.7 mg/dL (1.7-2.9) 07/25/18 05:23 Total Bilirubin 0.30 mg/dL (0.2-1.0) 07/25/18 05:23 AST 22 Units/L (15-37) 07/25/18 05:23 ALT 16 Units/L (12-78) 07/25/18 05:23 Alkaline Phosphatase 43 Units/L (46-116) L 07/25/18 05:23 Creatine Kinase 163 Units/L (26-192) 07/23/18 14:35 CK-MB (CK-2) 1.1 ng/mL (0-4.0) 07/23/18 14:35 CK/CKMB % Calc 0.7 % (<4) 07/23/18 14:35 Troponin I < 0.02 ng/mL (0-1.5) 07/23/18 14:35 Total Protein 7.3 g/dL (6.4-8.2) 07/25/18 05:23 Albumin 2.8 g/dL (3.4-5.0) L 07/25/18 05:23 Globulin 4.5 g/dL (2.5-4.5) 07/25/18 05:23 Albumin/Globulin Ratio 0.6 Ratio (1.1-2.1) L 07/25/18 05:23 Specimen Type Catherized urine 07/23/18 15:59 Urine Color Yellow (YELLOW) 07/23/18 15:59 Urine Appearance Clear (CLEAR) 07/23/18 15:59 Urine pH 5.0 (5.0 - 8.0) 07/23/18 15:59 Ur Specific [place] 1.030 (1.000-1.030) 07/23/18 15:59 Urine Protein 1+ (NEGATIVE) 07/23/18 15:59 Urine Glucose (UA) Negative (NEGATIVE) 07/23/18 15:59 Urine Ketones Negative (NEGATIVE) 07/23/18 15:59 Urine Occult Blood 2+ (NEGATIVE) 07/23/18 15:59 Urine Nitrite Negative (NEGATIVE) 07/23/18 15:59 Urine Bilirubin Negative (NEGATIVE) 07/23/18 15:59 Urine Urobilinogen Normal (NORMAL) 07/23/18 15:59 Ur Leukocyte Esterase 1+ (NEGATIVE) 07/23/18 15:59 Urine RBC 0-2 /HPF (NONE SEEN) 07/23/18 15:59 Urine WBC None seen /HPF (NONE SEEN) 07/23/18 15:59 Ur Squamous Epith Cells Few /HPF (NEGATIVE) 07/23/18 15:59 Amorphous Sediment Trace /HPF (NEGATIVE) 07/23/18 15:59 Urine Bacteria Negative /HPF (NEGATIVE) 07/23/18 15:59 Hyaline Casts Few /LPF (NEGATIVE) 07/23/18 15:59 Ur Culture Indicated? No/not indicated 07/23/18 15:59 - Plan (1) Pneumonia Status: Acute Plan: BP CONTROL, RATE CONTROL. IV HYDRATION. AM LABS, BLOOD AND URINE CULTURE COLLECTED, UC +GRAM NEG RODS. IV ATBX, STRICT I & OS, RESP THERAPY (2) Acute renal failure Status: Acute (3) Acute bronchitis Status: Acute (4) UTI (urinary tract infection) Status: Acute
--- NOTE | 2018-07-25 15:43 | CT ---
HISTORY: Shortness of breath, altered mental status Study: CT chest without contrast Comparison: None Technique: Multiple axial images of the chest were obtained from the thoracic inlet to the upper abdomen without IV contrast. Dose reduction techniques including Automated Exposure Control (AEC) and adjustment of mA and kV were utilized. Findings: Please note evaluation is limited without IV contrast. There is mild cardiomegaly post sternotomy for aortic valve repair. There is aneurysmal dilation of the ascending thoracic aorta up to 4.5 cm in diameter. No pericardial effusion. There are multifocal infiltrates in left upper lobe and left lower lobe with a small left-sided effusion. Findings suggest pneumonia with parapneumonic effusion. There are mildly enlarged mediastinal lymph nodes for example largest AP window node on axial image 19 measuring 2 cm that may be reactive in nature. There are centrilobular emphysematous changes present. There is a 1 cm right lower lobe pulmonary nodule on axial image 39. The soft tissues and osseous structures appear intact. The visualized portions of the upper abdomen are grossly unremarkable. IMPRESSION: 1. Multifocal infiltrates throughout the left lung most compatible with pneumonia. There is a small left parapneumonic pleural effusion. 2. Mildly enlarged mediastinal lymph nodes as described that may be reactive in nature. Attention on follow-up is recommended. 3. 1 cm right lower lobe pulmonary nodule. Correlation with any previous chest CT imaging would be of benefit to evaluate for stability. At a minimum, follow-up chest CT in 3-6 months is recommended for re-evaluation. Reported By:
[2018-07-25] MEDS: LEVAQUIN PREMIX IV 500 MG 500 MG/100 ML BAG IV SCH (17:11)
[2018-07-25] MEDS ORDERED: HALDOL INJ IM PRN (19:18)
[2018-07-25] MEDS ORDERED: HALDOL INJ ONE (19:20)
[2018-07-25] MEDS: SNACK - Diabetic Appropriate PO SCH (20:51)
[2018-07-25] MEDS ORDERED: ZOLOFT ONE (20:54)
[2018-07-25] MEDS: LOPRESSOR TAB 50 MG PO SCH (21:17)
[2018-07-25] MEDS: COLACE CAP 100 MG PO SCH (21:17)
[2018-07-25] MEDS: XARELTO PO SCH (21:19)
[2018-07-25] MEDS: ZOLOFT PO SCH (21:19)
[2018-07-26] MEDS: Atrovent NEB TX 0.02% NEB SCH ×5 (00:10→17:06)
[2018-07-26] MEDS: XOPENEX 1.25 MG/3 ML NEBULE NEB SCH ×5 (00:11→17:06)
[2018-07-26 05:22] LABS: BASOPHILS % (AUTO) 0.3 % (0.2-1.0); EOSINOPHILS # (AUTO) 0.1 x10^3/uL (0.0-0.2); EOSINOPHILS % (AUTO) 0.9 % (0.9-2.9); HEMATOCRIT 26.7 % (36.0-47.0); HEMOGLOBIN 8.9 g/dL (12.0-16.0); LYMPHOCYTES # (AUTO) 1.1 X10^3/uL (1.3-2.9); LYMPHOCYTES % (AUTO) 12.4 % (21.0-51.0); MEAN CORPUSCULAR HGB CONC 33.5 g/dL (33.0-35.0); MEAN CORPUSCULAR VOLUME 89.5 fL (80.0-100.0); MEAN PLATELET VOLUME 8.7 fL (7.4-11.0); MONOCYTES # (AUTO) 0.8 x10^3/uL (0.3-0.8); MONOCYTES % (AUTO) 8.8 % (0.0-13.0); NEUTROPHILS # (AUTO) 6.7 x10^3/uL (2.2-4.8); NEUTROPHILS % (AUTO) 77.6 % (42.0-75.0); PLATELET COUNT 167 X10^3/uL (150.0-450.0); RED BLOOD COUNT 2.98 X10^6/uL (3.5-5.4); RED CELL DISTRIBUTION WIDTH 15.1 % (11.6-16.5); WHITE BLOOD COUNT 8.6 X10^3/uL (3.6-10.0)
[2018-07-26 05:38] LABS: ALANINE AMINOTRANSFERASE 16 Units/L (12-78); ALBUMIN 2.7 g/dL (3.4-5.0); ALKALINE PHOSPHATASE 43 Units/L (46-116); ASPARTATE AMINO TRANSFERASE 22 Units/L (15-37); BLOOD UREA NITROGEN 29 mg/dL (7-18); CARBON DIOXIDE 25.9 mmol/L (21-32); CHLORIDE 103 mmol/L (98-107); CREATININE 1.61 mg/dL (0.55-1.02); SODIUM 140 mmol/L (136-145); TOTAL PROTEIN 7.2 g/dL (6.4-8.2); eGFR NON BLACK RACES 33 (>60)
[2018-07-26] MEDS: LOPRESSOR TAB 50 MG PO SCH ×2 (08:23→20:33)
[2018-07-26] MEDS: ZITHROMAX INJ 500 MG VIAL 500 MG in NS 250 ML IV 250 ML IV SCH (08:23)
[2018-07-26] MEDS: SYNTHROID 125 mcg TAB PO SCH ×2 (08:23→18:54)
[2018-07-26] MEDS: MILK OF MAGNESIA PO SCH ×2 (08:24→20:33)
[2018-07-26] MEDS: BROVANA IN SCH ×2 (09:07→20:10)
[2018-07-26] MEDS: PULMICORT NEB TX 0.5 MG NEB SCH ×2 (09:09→20:03)
[2018-07-26] MEDS: ROCEPHIN VIAL 1 GRAM IVP SCH (10:53)
[2018-07-26] MEDS: ROBITUSSIN DM PO SCH ×5 (10:53→22:03)
[2018-07-26] MEDS: MUCOMYST 20% 200 MG/ML NEB SCH ×3 (10:54→20:12)
[2018-07-26] MEDS ORDERED: ZOLOFT ONE (20:12)
[2018-07-26] MEDS: COLACE CAP 100 MG PO SCH ×2 (20:33→20:37)
[2018-07-26] MEDS: ZOLOFT PO SCH (20:33)
[2018-07-26] MEDS: XARELTO PO SCH (20:33)
[2018-07-26] MEDS: SNACK - Diabetic Appropriate PO SCH (20:37)
[2018-07-26] MEDS ORDERED: NORCO 5/325 MG TAB PO PRN (20:45)
[2018-07-26] MEDS ORDERED: RESTORIL CAP 15 MG PO PRN (23:31)
[2018-07-27] MEDS: Atrovent NEB TX 0.02% NEB SCH ×3 (00:45→11:40)
[2018-07-27] MEDS: XOPENEX 1.25 MG/3 ML NEBULE NEB SCH ×3 (00:46→11:40)
[2018-07-27] MEDS: ROBITUSSIN DM PO SCH ×5 (02:30→09:22)
[2018-07-27 06:12] LABS: BASOPHILS % (AUTO) 0.4 % (0.2-1.0); EOSINOPHILS # (AUTO) 0.2 x10^3/uL (0.0-0.2); EOSINOPHILS % (AUTO) 2.1 % (0.9-2.9); HEMATOCRIT 26.2 % (36.0-47.0); HEMOGLOBIN 8.8 g/dL (12.0-16.0); LYMPHOCYTES # (AUTO) 1.3 X10^3/uL (1.3-2.9); LYMPHOCYTES % (AUTO) 17.3 % (21.0-51.0); MEAN CORPUSCULAR HEMOGLOBIN 30.2 pg (27.0-34.0); MEAN CORPUSCULAR HGB CONC 33.6 g/dL (33.0-35.0); MEAN CORPUSCULAR VOLUME 89.8 fL (80.0-100.0); MEAN PLATELET VOLUME 7.8 fL (7.4-11.0); MONOCYTES # (AUTO) 0.7 x10^3/uL (0.3-0.8); NEUTROPHILS # (AUTO) 5.5 x10^3/uL (2.2-4.8); NEUTROPHILS % (AUTO) 71.2 % (42.0-75.0); PLATELET COUNT 180 X10^3/uL (150.0-450.0); RED BLOOD COUNT 2.91 X10^6/uL (3.5-5.4); RED CELL DISTRIBUTION WIDTH 14.8 % (11.6-16.5); WHITE BLOOD COUNT 7.8 X10^3/uL (3.6-10.0)
[2018-07-27 06:42] LABS: ALBUMIN 2.6 g/dL (3.4-5.0); CALCIUM 8.7 mg/dL (8.5-10.1); CARBON DIOXIDE 26.1 mmol/L (21-32); COR CA(FOR HYPOALB) 9.8 mg/dL (8.5-10.1); CREATININE 1.63 mg/dL (0.55-1.02)
[2018-07-27] MEDS: LOPRESSOR TAB 50 MG PO SCH (09:22)
[2018-07-27] MEDS: ROCEPHIN VIAL 1 GRAM IVP SCH (09:22)
[2018-07-27] MEDS: MILK OF MAGNESIA PO SCH (09:28)
[2018-07-27] MEDS: MUCOMYST 20% 200 MG/ML NEB SCH (09:40)
[2018-07-27] MEDS: XOPENEX 1.25 MG/3 ML NEBULE NEB PRN (09:40)
[2018-07-27] MEDS: PULMICORT NEB TX 0.5 MG NEB SCH (09:40)
[2018-07-27] MEDS: BROVANA IN SCH (09:54)
[2018-07-27 13:37] VITALS: BP 124/69
== END 2018-07-27 13:35 | DRG 194 ==
LOC: ICU → OBSVTOIN 14:13 → MED/SURG 07-26 16:30
PROVIDERS: ADMIT Internal Medicine; ATTEND Internal Medicine
DX: J20.8 Acute bronchitis due to other specified organisms; J44.9 Chronic obstructive pulmonary disease, unspecified; R53.1 Weakness; I48.91 Unspecified atrial fibrillation; R06.02 Shortness of breath; J18.8 Other pneumonia, unspecified organism; N17.8 Other acute kidney failure; E86.0 Dehydration; I10 Essential (primary) hypertension; Z79.01 Long term (current) use of anticoagulants; N39.0 Urinary tract infection, site not specified; R41.82 Altered mental status, unspecified; I95.89 Other hypotension; B96.29 Other Escherichia coli [E. coli] as the cause of diseases classified elsewhere
CPT/HCPCS: 36415; 36600; 71010; 71045; 71250; 80053; 81001; 82550; 82553; 82803; 83605; 83735; 84484; 85025; 87040; 87070; 87086; 87088; 87186; 87205; 93005; 94640; A4222; J0456; J0696; J1630; J1956; J3475; J7030; J7050; J7608; J7626; J7644

== ENCOUNTER 2018-09-26 18:22 | Inpatient (IN) ==
[2018-09-26] MEDS ORDERED: NS 1000 ML 1,000 ML ONE (23:59)
[2018-09-27 00:01] VITALS: BMI 24.7
[2018-09-27] MEDS: NS 1000 ML 1,000 ML IV SCH ×2 (00:06→14:45)
[2018-09-27] MEDS: INVANZ INJ 1 GM VIAL 1 GM in NS 100 ML IV + SPIKE MINIBAG* 100 ML IV SCH ×2 (00:18→08:03)
[2018-09-27 00:43] LABS: BASOPHILS % (AUTO) 0.7 % (0.2-1.0); EOSINOPHILS # (AUTO) 0.1 x10^3/uL (0.0-0.2); EOSINOPHILS % (AUTO) 1.5 % (0.9-2.9); HEMATOCRIT 29.2 % (36.0-47.0); HEMOGLOBIN 9.6 g/dL (12.0-16.0); LYMPHOCYTES # (AUTO) 1.2 X10^3/uL (1.3-2.9); LYMPHOCYTES % (AUTO) 19.8 % (21.0-51.0); MEAN CORPUSCULAR HEMOGLOBIN 29.7 pg (27.0-34.0); MEAN CORPUSCULAR HGB CONC 32.9 g/dL (33.0-35.0); MEAN CORPUSCULAR VOLUME 90.2 fL (80.0-100.0); MEAN PLATELET VOLUME 8.9 fL (7.4-11.0); MONOCYTES # (AUTO) 0.4 x10^3/uL (0.3-0.8); MONOCYTES % (AUTO) 7.5 % (0.0-13.0); NEUTROPHILS # (AUTO) 4.1 x10^3/uL (2.2-4.8); NEUTROPHILS % (AUTO) 70.5 % (42.0-75.0); PLATELET COUNT 90 X10^3/uL (150.0-450.0); RED BLOOD COUNT 3.24 X10^6/uL (3.5-5.4); RED CELL DISTRIBUTION WIDTH 15.5 % (11.6-16.5); WHITE BLOOD COUNT 5.9 X10^3/uL (3.6-10.0)
[2018-09-27 01:25] LABS: ALBUMIN 2.8 g/dL (3.4-5.0); CARBON DIOXIDE 30.7 mmol/L (21-32); CREATININE 1.2 mg/dL (0.55-1.02); FREE T4 (FREE THYROXINE) 1.01 ng/dL (0.76-1.46); MAGNESIUM 1.3 mg/dL (1.7-2.9); TOTAL PROTEIN 7.4 g/dL (6.4-8.2); TSH (3RD GENERATION) 2.97 uIU/mL (0.358-3.74)
[2018-09-27] MEDS ORDERED: MICRO K EXTEN CAP 10 MEQ PO PRN (01:44)
[2018-09-27] MEDS ORDERED: K-RIDER 10 MEQ/NS 100 ML 10 MEQ/100 ML BAG IV PRN (01:44)
[2018-09-27] MEDS ORDERED: KLOR-CON PO PRN (01:44)
[2018-09-27] MEDS ORDERED: POTASSIUM CHLORIDE LIQ 20 MEQ UDC PO PRN (01:44)
[2018-09-27] MEDS ORDERED: K-DUR TAB 20 MEQ PO PRN (01:44)
[2018-09-27] MEDS ORDERED: POTASSIUM CHL 60 MEQ/NS 0.45% 500 ML IV PRN (01:44)
[2018-09-27] MEDS ORDERED: POTASSIUM CHL 40 MEQ/NS 0.45% 500 ML IV PRN (01:44)
[2018-09-27] MEDS ORDERED: MAGNESIUM SULFATE 1 GRAM/100 mL PREMIX 4 G/400 ML BAG IV ONE (02:18)
[2018-09-27] MEDS: MAGNESIUM SULFATE 1 GRAM/100 mL PREMIX 1 GM/100 ML BAG IV PRN ×4 (02:21→05:40)
[2018-09-27 05:05] LABS: BILIRUBIN,URINE NEGATIVE (NEGATIVE); BLOOD/HEMOGLOBIN,URINE 2+ (NEGATIVE); GLUCOSE, URINE NEGATIVE (NEGATIVE); KETONES,URINE 1+ (NEGATIVE); LEUKOCYTE ESTERASE ,URINE 3+ (NEGATIVE); NITRITES,URINE NEGATIVE (NEGATIVE); PROTEIN,URINE 2+ (NEGATIVE); UROBILINOGEN,URINE NORMAL (NORMAL)
[2018-09-27 05:12] LABS: APPEARANCE,URINE SLIGHTLY HAZY (CLEAR); BACTERIA,URINE TRACE /HPF (NEGATIVE); COLOR,URINE YELLOW (YELLOW); SQUAMOUS EPITHELIAL CELL,UR MODERATE /HPF (NEGATIVE)
[2018-09-27 05:13] LABS: YEAST,URINE MODERATE /HPF (NEGATIVE)
--- NOTE | 2018-09-27 09:35 | RAD ---
HISTORY: Respiratory difficulty Study: Chest AP portable Comparison: 07/23/2018 Findings: Patient is status post median sternotomy and CABG. The heart is enlarged. No congestive heart failure is noted. The lungs are mildly hyperinflated. Diffuse interstitial lung changes are stable. Subtle peribronchial infiltrates are identified throughout the right lung suggestive of bronchopneumonia. No pleural effusions are identified. Bony thorax is unremarkable. IMPRESSION: Mild cardiomegaly without congestive heart failure Diffuse interstitial lung changes, chronic Peribronchial infiltrates in the right upper and right lower lobe suggestive of bronchopneumonia Reported By:
[2018-09-27] MEDS ORDERED: PHARMACY CONSULT - DOSE _____ XX SCH ×2 (10:00→18:00)
[2018-09-27] MEDS: LASIX IVP SCH ×2 (11:23→21:01)
[2018-09-27] MEDS ORDERED: NORCO 10/325 TAB PO PRN (13:20)
[2018-09-27] MEDS ORDERED: ZOFRAN TAB 4 MG PO PRN (13:20)
[2018-09-27] MEDS ORDERED: PATIENT'S HOME MEDICATION (Ferrous Sulfate [Ferrous Sulfate] 325 MG) PO SCH (13:30)
--- NOTE | 2018-09-27 13:42 | DR.H&P ---
H&P - History & Physical for Day of: H&P Date: 09/26/18 - Chief Complaint Chief Complaint: AMS, WEAKNESS, UTI FAILED OUTPT TREATMENT WITH ROCEPHIN, INCREASED SOB - History of Present Illness History of Present Illness: 73 WF DIRECT ADMIT FROM [facility] WITH INCREASED AMS, RECENT UTI AND HAS RECEIVED ROCEPHIN WITHOUT IMPROVEMENT. PT ALSO HAS COPD AND CHF WITH INCREASED SOB, CHEST CONGESTION. PT HAS PMH OF A FIB, COPD, CHF, OA, HTN, SAWYER. PT HAD UA ON ADMISSION, STARTED ON IV ATBX. - Past Medical History Past Medical History: Anxiety, Arthritis, COPD, Coronary Artery Disease, Depression, Dyslipidemia, Hypertension - Past Surgical History Surgical History: CABG/Valve Surgery, Cholecystectomy, Hysterectomy, Mastectomy - Family History Family Medical History: Coronary Artery Disease, Hypertension - Social History Does patient currently use any type of tobacco product: No Have you used tobacco products in the last 12 months: No Type of Tobacco Use: None Alcohol Use: None Drug Use: None - Medications Home Medications: aspirin Allergy (Verified 05/28/18 17:20) codeine Allergy (Verified 05/28/18 17:20) Iodinated Contrast- Oral and IV Dye Allergy (Verified 05/28/18 18:07) Penicillins Allergy (Verified 05/28/18 17:20) Sulfa (Sulfonamide Antibiotics) Allergy (Verified 05/28/18 17:20) - Review of Systems Constitutional: Weakness Eyes: No Symptoms Reported ENT: No Symptoms Reported Respiratory: Shortness of Breath Cardiovascular: No Symptoms Reported Gastrointestinal: No Symptoms Reported Genitourinary: No Symptoms Reported Musculoskeletal: Back Pain Skin: No Symptoms Reported Neurological: Weakness, Confusion - Physical Exam Vital Signs: Temperature 98.0 F Pulse Rate [Left Radial] 68 Pulse Rate 93 Respiratory Rate 18 Blood Pressure [Left Calf] 138/58 Blood Pressure [Left Arm] 129/60 Blood Pressure 124/69 O2 Sat by Pulse Oximetry 98 Oriented: Person Eyes: Normal Ear: Normal Nose: Normal Throat: Normal Respiratory: Rhonchi Throughout, RML Diminished, RLL Diminished, LML Diminished, LLL Diminished Cardiovascular: Irregular Auscultation: Bowel Sounds: Normal Palpation: Normal Tenderness: Normal Skin: Normal Musculoskeletal: Back:Lumbar Psychiatric: Anxiety Affect: Anxious Speech Pattern: Clear, Appropriate - Assessment/Plan (1) Altered mental status Status: Acute Plan: ADMIT ADMISSION LABS CBC CMP BLOOD AND URINE CULTURES. IV ATBX, VERIFY HOME MEDICATION, SUPPLEMENTAL O2. STRICT I & OS (2) CHF (congestive heart failure) Status: Acute (3) UTI (urinary tract infection) Status: Acute (4) Pneumonia Status: Acute - Allergies Allergies/Adverse Reactions: Allergies Allergy/AdvReac Type Severity Reaction Status Date / Time aspirin Allergy Verified 05/28/18 17:20 codeine Allergy Verified 05/28/18 17:20 Iodinated Contrast- Oral and Allergy Verified 05/28/18 18:07 IV Dye Penicillins Allergy Verified 05/28/18 17:20 Sulfa (Sulfonamide Allergy Verified 05/28/18 17:20 Antibiotics)
[2018-09-27] MEDS: DUONEB 0.5 MG/3 MG NEB SCH ×3 (13:47→20:45)
[2018-09-27] MEDS: ROCEPHIN VIAL 1 GRAM IVP SCH (14:44)
[2018-09-27] MEDS: NEURONTIN CAP 300 MG PO SCH ×2 (14:45→20:58)
[2018-09-27] MEDS: PROTONIX TAB 40 MG PO SCH (14:45)
[2018-09-27] MEDS: MUCINEX EXPECTORANT PO SCH ×2 (14:45→20:58)
[2018-09-27] MEDS: SYNTHROID 125 mcg TAB PO SCH (14:46)
[2018-09-27] MEDS: HEMOCYTE-PLUS PO SCH (15:01)
[2018-09-27] MEDS: EXEMESTANE 25 MG PO SCH ×2 (16:14→18:28)
[2018-09-27] MEDS ORDERED: XARELTO PO SCH (16:30)
--- NOTE | 2018-09-27 16:33 | PCM.PROG ---
Progress Note - Progress Note for Day of Date of Exam: 09/27/18 - Subjective Subjective: 73 WF ADMITTED FROM [facility] 09/26 WITH AMS, UTI. PT HAD HX COPD, INCREASED SOB AND CHEST CONGESTION, CXR THIS AM WITH PNEUMONIA. PT GIVEN LASIX 40MG IV BID X 2 DOSES WITH STRICT I & OS, SPUTUM CULTURE ORDERED AND RESP THERAPY. PT STARTED ON IV ROCEPHIN. - Past Medical Family Social History Past Med/Fam/Surg Hx: No changes since H&P Allergies: Allergies aspirin Allergy (Verified 05/28/18 17:20) codeine Allergy (Verified 05/28/18 17:20) Iodinated Contrast- Oral and IV Dye Allergy (Verified 05/28/18 18:07) Penicillins Allergy (Verified 05/28/18 17:20) Sulfa (Sulfonamide Antibiotics) Allergy (Verified 05/28/18 17:20) - Review of Systems ROS: No change since H&P - Vital Signs and I&O's Vital Signs: Temperature 98.7 F Pulse Rate [Left Radial] 71 Pulse Rate 74 Respiratory Rate 18 Blood Pressure [Left Calf] 138/58 Blood Pressure [Left Arm] 113/53 Blood Pressure 124/69 O2 Sat by Pulse Oximetry 97 Intake and Output: Intake & Output 09/25/18 09/26/18 09/27/18 09/28/18 11:59 11:59 11:59 11:59 Intake Total 950 / 950 360 / 360 Output Total 200 / 200 900 / 900 Balance 750 / 750 -540 / -540 - Physical Exam Oriented: Person Eyes: Normal Ear: Normal Nose: Normal Throat: Normal Respiratory: Diminished, Rales, Rhonchi Cardiovascular: Irregular Auscultation: Bowel Sounds: Normal Tenderness: Normal Skin: Normal Musculoskeletal: Back:Lumbar Psychiatric: Anxiety Affect: Anxious Speech Pattern: Clear, Appropriate - Laboratory and Diagnostics Result Diagrams: 09/27/18 00:15 09/27/18 00:15 Labs: 09/27/18 09:45 Sputum - Expectorated Sputum - Final Laboratory WBC 5.9 X10^3/uL (3.6-10.0) 09/27/18 00:15 RBC 3.24 X10^6/uL (3.5-5.4) L 09/27/18 00:15 Hgb 9.6 g/dL (12.0-16.0) L 09/27/18 00:15 Hct 29.2 % (36.0-47.0) L 09/27/18 00:15 MCV 90.2 fL (80.0-100.0) 09/27/18 00:15 MCH 29.7 pg (27.0-34.0) 09/27/18 00:15 MCHC 32.9 g/dL (33.0-35.0) L 09/27/18 00:15 RDW 15.5 % (11.6-16.5) 09/27/18 00:15 Plt Count 90 X10^3/uL (150.0-450.0) L 09/27/18 00:15 MPV 8.9 fL (7.4-11.0) 09/27/18 00:15 Neut % (Auto) 70.5 % (42.0-75.0) 09/27/18 00:15 Lymph % (Auto) 19.8 % (21.0-51.0) L 09/27/18 00:15 [place] % (Auto) 7.5 % (0.0-13.0) 09/27/18 00:15 Eos % (Auto) 1.5 % (0.9-2.9) 09/27/18 00:15 Baso % (Auto) 0.7 % (0.2-1.0) 09/27/18 00:15 Neut # (Auto) 4.1 x10^3/uL (2.2-4.8) 09/27/18 00:15 Lymph # (Auto) 1.2 X10^3/uL (1.3-2.9) L 09/27/18 00:15 [place] # (Auto) 0.4 x10^3/uL (0.3-0.8) 09/27/18 00:15 Eos # (Auto) 0.1 x10^3/uL (0.0-0.2) 09/27/18 00:15 Baso # (Auto) 0.0 X10^3/uL (0.0-0.1) 09/27/18 00:15 Absolute Nucleated RBC 0.0 /100WBC 09/27/18 00:15 Sodium 144 mmol/L (136-145) 09/27/18 00:15 Corrected Sodium 144 mmol/L (136-145) 09/27/18 00:15 Potassium 4.3 mmol/L (3.5-5.1) 09/27/18 00:15 Chloride 106 mmol/L (98-107) 09/27/18 00:15 Carbon Dioxide 30.7 mmol/L (21-32) 09/27/18 00:15 BUN 18 mg/dL (7-18) 09/27/18 00:15 Creatinine 1.20 mg/dL (0.55-1.02) H 09/27/18 00:15 Est GFR (MDRD) Af Amer 56 (>60) L 09/27/18 00:15 Est GFR (MDRD) Non-Af 47 (>60) L 09/27/18 00:15 Glucose 112 mg/dL (65-99) H 09/27/18 00:15 Calcium 9.0 mg/dL (8.5-10.1) 09/27/18 00:15 Corrected Calcium 10.0 mg/dL (8.5-10.1) 09/27/18 00:15 Magnesium 1.3 mg/dL (1.7-2.9) L 09/27/18 00:15 Total Bilirubin 0.30 mg/dL (0.2-1.0) 09/27/18 00:15 AST 19 Units/L (15-37) 09/27/18 00:15 ALT 9 Units/L (12-78) L 09/27/18 00:15 Alkaline Phosphatase 49 Units/L (46-116) 09/27/18 00:15 Total Protein 7.4 g/dL (6.4-8.2) 09/27/18 00:15 Albumin 2.8 g/dL (3.4-5.0) L 09/27/18 00:15 Globulin 4.6 g/dL (2.5-4.5) H 09/27/18 00:15 Albumin/Globulin Ratio 0.6 Ratio (1.1-2.1) L 09/27/18 00:15 Free T4 1.01 ng/dL (0.76-1.46) 09/27/18 00:15 TSH 3rd Generation 2.970 uIU/mL (0.358-3.74) 09/27/18 00:15 Specimen Type Clean catch urine 09/27/18 04:32 Urine Color Yellow (YELLOW) 09/27/18 04:32 Urine Appearance Slightly hazy (CLEAR) 09/27/18 04:32 Urine pH 5.0 (5.0 - 8.0) 09/27/18 04:32 Ur Specific [place] 1.020 (1.000-1.030) 09/27/18 04:32 Urine Protein 2+ (NEGATIVE) 09/27/18 04:32 Urine Glucose (UA) Negative (NEGATIVE) 09/27/18 04:32 Urine Ketones 1+ (NEGATIVE) 09/27/18 04:32 Urine Occult Blood 2+ (NEGATIVE) 09/27/18 04:32 Urine Nitrite Negative (NEGATIVE) 09/27/18 04:32 Urine Bilirubin Negative (NEGATIVE) 09/27/18 04:32 Urine Urobilinogen Normal (NORMAL) 09/27/18 04:32 Ur Leukocyte Esterase 3+ (NEGATIVE) 09/27/18 04:32 Urine RBC 5-10 /HPF (NONE SEEN) 09/27/18 04:32 Urine WBC 10-20 /HPF (NONE SEEN) 09/27/18 04:32 Ur Squamous Epith Cells Moderate /HPF (NEGATIVE) 09/27/18 04:32 Urine Bacteria Trace /HPF (NEGATIVE) 09/27/18 04:32 Urine Yeast Moderate /HPF (NEGATIVE) 09/27/18 04:32 Ur Culture Indicated? Yes/culture set up 09/27/18 04:32 - Plan (1) Altered mental status Status: Acute Plan: AM LABS CBC CMP BLOOD AND URINE CULTURES. IV ATBX, VERIFY HOME MEDICATION, SUPPLEMENTAL O2. STRICT I & OS (2) CHF (congestive heart failure) Status: Acute Plan: IV LASIX (3) UTI (urinary tract infection) Status: Acute (4) Pneumonia Status: Acute Plan: RESP THERAPY, IV ROCEPHIN. SPUTUM CULTURE
[2018-09-27] MEDS ORDERED: DIFLUCAN 100 MG IV (MIX by PHARMACY)* 100 MG/50 ML BAG IV SCH (20:00)
[2018-09-27] MEDS ORDERED: ZOLOFT ONE (20:30)
[2018-09-27] MEDS: PULMICORT NEB TX 0.5 MG NEB SCH (20:45)
[2018-09-27] MEDS: XARELTO PO SCH (20:59)
[2018-09-27] MEDS: XANAX PO SCH (20:59)
[2018-09-27] MEDS: ZOLOFT PO SCH (21:00)
[2018-09-27] MEDS: LOPRESSOR TAB 50 MG PO SCH (21:00)
[2018-09-27] MEDS: ZOCOR TAB 40 MG PO SCH (21:00)
[2018-09-27] MEDS ORDERED: DIFLUCAN 200 MG IV PREMIX* 200 MG/100 ML BAG ONE (21:22)
[2018-09-28] MEDS: NS 1000 ML 1,000 ML IV SCH ×3 (06:03→20:30)
[2018-09-28 06:07] LABS: BASOPHILS % (AUTO) 0.7 % (0.2-1.0); EOSINOPHILS # (AUTO) 0.1 x10^3/uL (0.0-0.2); EOSINOPHILS % (AUTO) 2.6 % (0.9-2.9); HEMATOCRIT 24.6 % (36.0-47.0); HEMOGLOBIN 8.2 g/dL (12.0-16.0); LYMPHOCYTES # (AUTO) 1.1 X10^3/uL (1.3-2.9); LYMPHOCYTES % (AUTO) 20.8 % (21.0-51.0); MEAN CORPUSCULAR HEMOGLOBIN 30.3 pg (27.0-34.0); MEAN CORPUSCULAR HGB CONC 33.4 g/dL (33.0-35.0); MEAN CORPUSCULAR VOLUME 90.6 fL (80.0-100.0); MEAN PLATELET VOLUME 8.8 fL (7.4-11.0); MONOCYTES # (AUTO) 0.4 x10^3/uL (0.3-0.8); MONOCYTES % (AUTO) 7.9 % (0.0-13.0); NEUTROPHILS # (AUTO) 3.7 x10^3/uL (2.2-4.8); PLATELET COUNT 91 X10^3/uL (150.0-450.0); RED BLOOD COUNT 2.71 X10^6/uL (3.5-5.4); RED CELL DISTRIBUTION WIDTH 15.4 % (11.6-16.5); WHITE BLOOD COUNT 5.5 X10^3/uL (3.6-10.0)
[2018-09-28 06:12] LABS: ALANINE AMINOTRANSFERASE 9 Units/L (12-78); ALBUMIN 2.5 g/dL (3.4-5.0); ALKALINE PHOSPHATASE 44 Units/L (46-116); ASPARTATE AMINO TRANSFERASE 17 Units/L (15-37); BLOOD UREA NITROGEN 14 mg/dL (7-18); CALCIUM 8.2 mg/dL (8.5-10.1); CARBON DIOXIDE 31.2 mmol/L (21-32); CHLORIDE 105 mmol/L (98-107); COR CA(FOR HYPOALB) 9.4 mg/dL (8.5-10.1); CREATININE 1.27 mg/dL (0.55-1.02); MAGNESIUM 1.5 mg/dL (1.7-2.9); SODIUM 143 mmol/L (136-145); TOTAL PROTEIN 6.4 g/dL (6.4-8.2); eGFR NON BLACK RACES 44 (>60)
--- NOTE | 2018-09-28 06:26 | RAD ---
HISTORY: Dyspnea Study: Chest AP portable Comparison: 09/27/2018 Findings: Patient is status post median sternotomy and valve replacement. The heart is upper limits normal in size. No congestive heart failure is noted. The lungs are mildly hyperinflated. Diffuse interstitial lung changes are stable. Previously noted peribronchial infiltrates on the right at significantly improved. No pleural effusions are identified. The bony thorax is unremarkable. IMPRESSION: No change bilateral interstitial infiltrates, chronic Significant improvement in the peribronchial right lung infiltrates being followed Reported By:
[2018-09-28] MEDS: XANAX PO SCH ×2 (08:14→20:26)
[2018-09-28] MEDS: DIFLUCAN PO SCH (08:15)
[2018-09-28] MEDS: PROTONIX TAB 40 MG PO SCH (08:15)
[2018-09-28] MEDS: HEMOCYTE-PLUS PO SCH (08:15)
[2018-09-28] MEDS: LOPRESSOR TAB 50 MG PO SCH ×2 (08:15→20:28)
[2018-09-28] MEDS: SYNTHROID 125 mcg TAB PO SCH (08:16)
[2018-09-28] MEDS: INVANZ INJ 1 GM VIAL 1 GM in NS 100 ML IV + SPIKE MINIBAG* 100 ML IV SCH (08:16)
[2018-09-28] MEDS: ROCEPHIN VIAL 1 GRAM IVP SCH (08:16)
[2018-09-28] MEDS: EXEMESTANE 25 MG PO SCH (08:16)
[2018-09-28] MEDS: MUCINEX EXPECTORANT PO SCH ×2 (08:17→20:27)
[2018-09-28] MEDS: DUONEB 0.5 MG/3 MG NEB SCH ×4 (08:48→20:14)
[2018-09-28] MEDS: PULMICORT NEB TX 0.5 MG NEB SCH ×2 (08:48→20:14)
[2018-09-28] MEDS: LASIX IVP SCH ×2 (11:21→20:25)
--- NOTE | 2018-09-28 17:18 | PCM.PROG ---
Progress Note - Progress Note for Day of Date of Exam: 09/28/18 - Subjective Subjective: 73 WF ADMITTED FROM [facility] 09/26 WITH AMS, UTI. PT HAD HX COPD, INCREASED SOB AND CHEST CONGESTION WITH CXR +FOR PNEUMONIA. PT ON IV ROCEPHIN AND INVANZ. K 3.4, BUN 14/CREAT 1.27. CXR THIS AM REVEALED SIGNIFICANT IMPROVEMENT. PT REPORTS SHE DOES FEEL MUCH BETTER, "CAN BREATH EASIER" PT CONTINUED WITH DIFFUSE EXP WHEEZES AND ANTERIOR RHONCHI - Past Medical Family Social History Past Med/Fam/Surg Hx: No changes since H&P Allergies: Allergies aspirin Allergy (Verified 05/28/18 17:20) codeine Allergy (Verified 05/28/18 17:20) Iodinated Contrast- Oral and IV Dye Allergy (Verified 05/28/18 18:07) Penicillins Allergy (Verified 05/28/18 17:20) Sulfa (Sulfonamide Antibiotics) Allergy (Verified 05/28/18 17:20) - Review of Systems ROS: No change since H&P - Vital Signs and I&O's Vital Signs: Temperature 97.8 F Pulse Rate [Left Radial] 115 Pulse Rate 80 Respiratory Rate 18 Blood Pressure [Left Calf] 138/58 Blood Pressure [Left Arm] 118/65 Blood Pressure 124/69 O2 Sat by Pulse Oximetry 97 Intake and Output: Intake & Output 09/26/18 09/27/18 09/28/18 09/29/18 11:59 11:59 11:59 11:59 Intake Total 950 / 950 1410 / 1410 798 / 798 Output Total 200 / 200 2100 / 2100 800 / 800 Balance 750 / 750 -690 / -690 -2 / -2 - Physical Exam Oriented: Person Eyes: Normal Ear: Normal Nose: Normal Throat: Normal Respiratory: Wheezes, Rales, Rhonchi Cardiovascular: Irregular Auscultation: Bowel Sounds: Normal Tenderness: Normal Skin: Normal Musculoskeletal: Back:Lumbar Psychiatric: Anxiety Affect: Anxious Speech Pattern: Clear, Appropriate - Laboratory and Diagnostics Result Diagrams: 09/28/18 05:52 09/28/18 05:52 Labs: 09/27/18 09:45 Sputum - Expectorated Sputum Sputum Culture - Preliminary 09/27/18 09:45 Sputum - Expectorated Sputum - Final 09/27/18 04:32 Urine,Clean Catch Urine Culture - Final Laboratory WBC 5.5 X10^3/uL (3.6-10.0) 09/28/18 05:52 RBC 2.71 X10^6/uL (3.5-5.4) L 09/28/18 05:52 Hgb 8.2 g/dL (12.0-16.0) L 09/28/18 05:52 Hct 24.6 % (36.0-47.0) L 09/28/18 05:52 MCV 90.6 fL (80.0-100.0) 09/28/18 05:52 MCH 30.3 pg (27.0-34.0) 09/28/18 05:52 MCHC 33.4 g/dL (33.0-35.0) 09/28/18 05:52 RDW 15.4 % (11.6-16.5) 09/28/18 05:52 Plt Count 91 X10^3/uL (150.0-450.0) L 09/28/18 05:52 MPV 8.8 fL (7.4-11.0) 09/28/18 05:52 Neut % (Auto) 68.0 % (42.0-75.0) 09/28/18 05:52 Lymph % (Auto) 20.8 % (21.0-51.0) L 09/28/18 05:52 [place] % (Auto) 7.9 % (0.0-13.0) 09/28/18 05:52 Eos % (Auto) 2.6 % (0.9-2.9) 09/28/18 05:52 Baso % (Auto) 0.7 % (0.2-1.0) 09/28/18 05:52 Neut # (Auto) 3.7 x10^3/uL (2.2-4.8) 09/28/18 05:52 Lymph # (Auto) 1.1 X10^3/uL (1.3-2.9) L 09/28/18 05:52 [place] # (Auto) 0.4 x10^3/uL (0.3-0.8) 09/28/18 05:52 Eos # (Auto) 0.1 x10^3/uL (0.0-0.2) 09/28/18 05:52 Baso # (Auto) 0.0 X10^3/uL (0.0-0.1) 09/28/18 05:52 Absolute Nucleated RBC 0.0 /100WBC 09/28/18 05:52 Sodium 143 mmol/L (136-145) 09/28/18 05:52 Corrected Sodium TNP 09/28/18 05:52 Potassium 3.4 mmol/L (3.5-5.1) L 09/28/18 05:52 Chloride 105 mmol/L (98-107) 09/28/18 05:52 Carbon Dioxide 31.2 mmol/L (21-32) 09/28/18 05:52 BUN 14 mg/dL (7-18) 09/28/18 05:52 Creatinine 1.27 mg/dL (0.55-1.02) H 09/28/18 05:52 Est GFR (MDRD) Af Amer 53 (>60) L 09/28/18 05:52 Est GFR (MDRD) Non-Af 44 (>60) L 09/28/18 05:52 Glucose 110 mg/dL (65-99) H 09/28/18 05:52 Calcium 8.2 mg/dL (8.5-10.1) L 09/28/18 05:52 Corrected Calcium 9.4 mg/dL (8.5-10.1) 09/28/18 05:52 Magnesium 1.5 mg/dL (1.7-2.9) L 09/28/18 05:52 Total Bilirubin 0.20 mg/dL (0.2-1.0) 09/28/18 05:52 AST 17 Units/L (15-37) 09/28/18 05:52 ALT 9 Units/L (12-78) L 09/28/18 05:52 Alkaline Phosphatase 44 Units/L (46-116) L 09/28/18 05:52 Total Protein 6.4 g/dL (6.4-8.2) 09/28/18 05:52 Albumin 2.5 g/dL (3.4-5.0) L 09/28/18 05:52 Globulin 3.9 g/dL (2.5-4.5) 09/28/18 05:52 Albumin/Globulin Ratio 0.6 Ratio (1.1-2.1) L 09/28/18 05:52 Free T4 1.01 ng/dL (0.76-1.46) 09/27/18 00:15 TSH 3rd Generation 2.970 uIU/mL (0.358-3.74) 09/27/18 00:15 Specimen Type Clean catch urine 09/27/18 04:32 Urine Color Yellow (YELLOW) 09/27/18 04:32 Urine Appearance Slightly hazy (CLEAR) 09/27/18 04:32 Urine pH 5.0 (5.0 - 8.0) 09/27/18 04:32 Ur Specific [place] 1.020 (1.000-1.030) 09/27/18 04:32 Urine Protein 2+ (NEGATIVE) 09/27/18 04:32 Urine Glucose (UA) Negative (NEGATIVE) 09/27/18 04:32 Urine Ketones 1+ (NEGATIVE) 09/27/18 04:32 Urine Occult Blood 2+ (NEGATIVE) 09/27/18 04:32 Urine Nitrite Negative (NEGATIVE) 09/27/18 04:32 Urine Bilirubin Negative (NEGATIVE) 09/27/18 04:32 Urine Urobilinogen Normal (NORMAL) 09/27/18 04:32 Ur Leukocyte Esterase 3+ (NEGATIVE) 09/27/18 04:32 Urine RBC 5-10 /HPF (NONE SEEN) 09/27/18 04:32 Urine WBC 10-20 /HPF (NONE SEEN) 09/27/18 04:32 Ur Squamous Epith Cells Moderate /HPF (NEGATIVE) 09/27/18 04:32 Urine Bacteria Trace /HPF (NEGATIVE) 09/27/18 04:32 Urine Yeast Moderate /HPF (NEGATIVE) 09/27/18 04:32 Ur Culture Indicated? Yes/culture set up 09/27/18 04:32 - Plan (1) Altered mental status Status: Acute Plan: RESOLVED, CONTINUE IV ATBX FOR PNEUMONIA AND UTI. AM LABS CBC CMP. SUPPLEMENTAL O2, RESP THERAPY. STRICT I & OS (2) CHF (congestive heart failure) Status: Acute Plan: IV LASIX, STRICT I & OS (3) UTI (urinary tract infection) Status: Acute (4) Pneumonia Status: Acute Plan: RESP THERAPY, IV ROCEPHIN. SPUTUM CULTURE
[2018-09-28] MEDS ORDERED: ZOLOFT ONE (20:02)
[2018-09-28] MEDS: ZOLOFT PO SCH (20:25)
[2018-09-28] MEDS: NEURONTIN CAP 300 MG PO SCH (20:28)
[2018-09-28] MEDS: XARELTO PO SCH (20:29)
[2018-09-28] MEDS: ZOCOR TAB 40 MG PO SCH (20:41)
[2018-09-29 06:24] LABS: BASOPHILS % (AUTO) 0.7 % (0.2-1.0); EOSINOPHILS # (AUTO) 0.2 x10^3/uL (0.0-0.2); EOSINOPHILS % (AUTO) 3.5 % (0.9-2.9); HEMATOCRIT 25.6 % (36.0-47.0); HEMOGLOBIN 8.4 g/dL (12.0-16.0); LYMPHOCYTES # (AUTO) 1.2 X10^3/uL (1.3-2.9); LYMPHOCYTES % (AUTO) 24.1 % (21.0-51.0); MEAN CORPUSCULAR HEMOGLOBIN 29.8 pg (27.0-34.0); MEAN CORPUSCULAR HGB CONC 32.9 g/dL (33.0-35.0); MEAN CORPUSCULAR VOLUME 90.6 fL (80.0-100.0); MEAN PLATELET VOLUME 8.9 fL (7.4-11.0); MONOCYTES # (AUTO) 0.4 x10^3/uL (0.3-0.8); MONOCYTES % (AUTO) 8.5 % (0.0-13.0); NEUTROPHILS # (AUTO) 3.2 x10^3/uL (2.2-4.8); NEUTROPHILS % (AUTO) 63.2 % (42.0-75.0); PLATELET COUNT 105 X10^3/uL (150.0-450.0); RED BLOOD COUNT 2.82 X10^6/uL (3.5-5.4); RED CELL DISTRIBUTION WIDTH 15.2 % (11.6-16.5); WHITE BLOOD COUNT 5.1 X10^3/uL (3.6-10.0)
[2018-09-29 06:26] LABS: ALANINE AMINOTRANSFERASE 9 Units/L (12-78); ALBUMIN 2.4 g/dL (3.4-5.0); ALKALINE PHOSPHATASE 42 Units/L (46-116); ASPARTATE AMINO TRANSFERASE 20 Units/L (15-37); BLOOD UREA NITROGEN 12 mg/dL (7-18); CHLORIDE 105 mmol/L (98-107); COR CA(FOR HYPOALB) 9.3 mg/dL (8.5-10.1); CREATININE 1.16 mg/dL (0.55-1.02); SODIUM 143 mmol/L (136-145); TOTAL PROTEIN 6.2 g/dL (6.4-8.2); eGFR NON BLACK RACES 48 (>60)
[2018-09-29] MEDS: DUONEB 0.5 MG/3 MG NEB SCH ×2 (08:14→12:07)
[2018-09-29] MEDS: PULMICORT NEB TX 0.5 MG NEB SCH (08:14)
[2018-09-29] MEDS: PROTONIX TAB 40 MG PO SCH (08:43)
[2018-09-29] MEDS: HEMOCYTE-PLUS PO SCH (08:43)
[2018-09-29] MEDS: XANAX PO SCH (08:44)
[2018-09-29] MEDS: MUCINEX EXPECTORANT PO SCH (08:45)
[2018-09-29] MEDS: INVANZ INJ 1 GM VIAL 1 GM in NS 100 ML IV + SPIKE MINIBAG* 100 ML IV SCH (08:45)
[2018-09-29] MEDS: LOPRESSOR TAB 50 MG PO SCH (08:46)
[2018-09-29] MEDS: SYNTHROID 125 mcg TAB PO SCH (08:46)
[2018-09-29] MEDS: DIFLUCAN PO SCH (08:46)
[2018-09-29] MEDS: ROCEPHIN VIAL 1 GRAM IVP SCH (08:48)
[2018-09-29] MEDS: EXEMESTANE 25 MG PO SCH (08:56)
--- NOTE | 2018-09-29 09:52 | RAD ---
HISTORY: Follow-up lung infiltrates Study: Chest AP portable Comparison: 09/28/2018 Findings: The patient is status post median sternotomy and valve replacement. The heart is upper limits normal in size. No congestive heart failure is noted. Mild hyperinflation is again identified. Diffuse interstitial lung changes are present and unchanged when compared with the prior examination. No pleural effusions are identified. The bony thorax is unremarkable. IMPRESSION: No significant change from the prior day's examination Reported By:
[2018-09-29] MEDS ORDERED: OMNICEF CAP 300 MG PO SCH (13:00)
[2018-09-29 17:40] VITALS: BP 123/63
== END 2018-09-29 18:10 | DRG 689 ==
LOC: MED/SURG
PROVIDERS: ADMIT Internal Medicine; ATTEND Internal Medicine
DX: R06.02 Shortness of breath; J18.8 Other pneumonia, unspecified organism; N39.0 Urinary tract infection, site not specified; J44.9 Chronic obstructive pulmonary disease, unspecified; I48.91 Unspecified atrial fibrillation; R53.1 Weakness; R41.82 Altered mental status, unspecified; F41.8 Other specified anxiety disorders; I25.10 Atherosclerotic heart disease of native coronary artery without angina pectoris; I50.9 Heart failure, unspecified
CPT/HCPCS: 36415; 71010; 71045; 80053; 81001; 83735; 84439; 84443; 85025; 87040; 87070; 87086; 87205; 93005; 94640; 94669; 94760; A4222; G0378; J0696; J1335; J1450; J1940; J3475; J7030; J7050; J7620; J7626